=== PATIENT | male | born 1980 | race Caucasian/White ===

== ENCOUNTER 2023-03-15 11:10 | Outpatient (CLI) | payer OTHER, SELFPAY ==
[2023-03-15 18:42] LABS: Basophils Absolute Auto 0.1 K/mm3 (0.0-0.1); Basophils Percent Auto 0.5 % (0.2-1.2); Eosinophils Absolute Auto 0.1 K/mm3 (0-0.3); Eosinophils Percent Auto 0.4 % (0-4.4); Hematocrit 27.1 % (42.0-52.0); Immature Granulocyte Absolute 0.09 K/mm3 (0.00-0.031); Immature Granulocyte Percent A 0.6 % (0-0.5); Lymphocytes Percent Auto 8.1 % (18.3-44.2); Mean Corpuscular HGB Conc 22.1 g/dl (32-36); Mean Corpuscular Hemoglobin 13.9 pg (26-34); Mean Corpuscular Volume 62.9 fl (80-100); Mean Platelet Volume 8.8 fl (7.4-10.4); Monocytes Percent Auto 6.7 % (2.6-8.5); Neutrophils Absolute Auto 12.4 K/mm3 (1.3-6.7); Neutrophils Percent Auto 83.7 % (45.5-73.1); Nucleated Red Blood Cells Perc 0.2 % (0.0-0.2); Platelet Count Result 761 k/mm3 (150-375); Red Blood Count 4.31 M/mm3 (4.6-6.20); Red Cell Distribution Width 22.5 % (11.5-14.5); White Blood Count 14.8 K/mm3 (4.5-10.0)
[2023-03-15 18:43] LABS: Alanine Aminotransferase 20 U/L (6-50); Alkaline Phosphatase 154 U/L (38-126); Anion Gap 9 mmol/L (8-16); Aspartate Amino Transferase 61 U/L (17-59); Bilirubin,Total 0.5 mg/dL (0.2-1.3); Blood Urea Nitrogen 11 mg/dL (9-20); Calcium 9.2 mg/dL (8.4-10.2); Carbon Dioxide 27 mmol/L (22-30); Chloride 103 mmol/L (98-107); Cholesterol 100 mg/dL (0-200); Estimated Glomerular Filt Rate > 60; Glucose 125 mg/dL (65-110); HDL Direct 25 mg/dL; Potassium 3.8 mmol/L (3.4-5.0); Sodium 139 mmol/L (137-145); Triglycerides 111 mg/dL (<150)
[2023-03-15 18:45] LABS: Iron 11 ug/dL (49-181)
[2023-03-15 18:54] LABS: LDL Cholesterol Direct 39 mg/dL
[2023-03-15 18:57] LABS: Percent Iron Saturation 4 % (20-50)
[2023-03-15 19:47] LABS: Anisocytosis 3+ (NORMAL); Hypochromasia 2+ (NORMAL); Platelet Estimate Increased (Adequate)
[2023-03-15 19:48] LABS: Schistocytes None Seen (NORMAL)
== END 2023-03-15 11:11 | disposition home or self-care (01) ==
LOC: ANHGOSHLAB 11:10
PROVIDERS: PCP Family Medicine; Visit Provider Family Medicine
DX: R53.83 Other fatigue (principal); D50.9 Iron deficiency anemia, unspecified; Z13.228 Encounter for screening for other metabolic disorders; Z13.220 Encounter for screening for lipoid disorders
CPT/HCPCS: 36415; 80053; 80061; 82728; 83540; 83550; 85025

== ENCOUNTER 2023-03-16 10:33 | Observation (INO) | payer OTHER, SELFPAY ==
[2023-03-16] VITALS (17 sets, daily range): BP systolic 91–130; BP diastolic 49–89; PULSE 73–145; RESP 12–23; TEMP 36.3–37; O2SAT 98–100; BMI 27.5
--- NOTE | ~2023-03-16 | XR_ITS ---
EXAMINATION: XR chest 2V 03/16/2023 11:58 INDICATION: Shortness of breath and chest pain with exertion PROCEDURE: 2 view chest COMPARISON: 03/16/2016 FINDINGS: The lungs are clear. The cardiomediastinal silhouette is within normal limits. There are no pleural effusions. There is no pneumothorax suspected. IMPRESSION: 1: NO ACUTE CARDIOPULMONARY DISEASE. Reviewed, dictated and finalized at location L.
--- NOTE | ~2023-03-16 | CT_ITS ---
EXAMINATION: CT abdomen pelvis w con DATE: 03/16/2023 13:21 INDICATION: Left lower quadrant abdominal pain. TECHNIQUE: Computed tomography (CT) of the abdomen and pelvis was performed with 100 mL Omnipaque-350 intravenous contrast. Automated exposure control and iterative reconstruction technique were employe d. The dose-length product was 765.85 mGy-cm. COMPARISON: 01/12/2015 FINDINGS: Mild discoid atelectasis at the lingula. Heart size is normal. No pericardial or pleural effusion. Li evan, gallbladder, pancreas and bilateral adrenal glands are normal.. Splenomegaly measuring 15.6 cm i n maximal length. 2.5 cm right renal cyst. A couple additional indeterminate lesions at the left kidn ey measuring 1.2 cm and 1.4 cm with slightly greater than simple fluid attenuation. A few 1 mm stones at the mid left kidney. 2 mm and 3 mm stones at a lower pole calyx of the right kidney. No ureteral stones or hydronephrosis. There are few scattered colonic diverticula without adjacent inflammatory s tranding to suggest diverticular colitis. Small bowel and appendix are normal. Bladder is normal. No free intraperitoneal gas or fluid. No pathologically enlarged abdominal or pelvic lymphadenopathy. Fo grace nodular skin thickening at the bilateral inguinal creases, right greater than left. Moderate thor acolumbar spondylosis. IMPRESSION: 1. Mild scattered sigmoid diverticulosis. No acute intra-abdominal/pelvic process. 2. Bilateral nonobstructing nephrolithiasis. 3. Nonspecific splenomegaly. 4. A couple indeterminate lesions in the left kidney the larger measuring up to 1.4 cm with slightly greater than simple fluid attenuation most likely proteinaceous/hemorrhagic cysts although solid neop lasm cannot be absolutely excluded. Recommend further evaluation with pre and postcontrast MRI or CT. 5. Nonspecific nodular skin thickening along the bilateral inguinal creases. Correlate with clinical history and physical exam. Reviewed, dictated and finalized at location A. IMPRESSION: 1. Mild scattered sigmoid diverticulosis. No acute intra-abdominal/pelvic proce ss. 2. Bilateral nonobstructing nephrolithiasis. 3. Nonspecific splenomegaly. 4. A couple indeterminate lesions in the left kidney the larger measuring up to 1.4 cm with slightly greater than simple fluid attenuation most likely protein aceous/hemorrhagic cysts although solid neoplasm cannot be absolutely excluded. Recommend further evaluation with pre and postcontrast MRI or CT. 5. Nonspecific nodular skin thickening along the bilateral inguinal creases. Co rrelate with clinical history and physical exam.
--- NOTE | ~2023-03-16 | MR_ITS ---
EXAMINATION: MR abdomen wo/w con DATE: 03/17/2023 10:24 INDICATION: Left kidney lesion. Weight loss. TECHNIQUE: Magnetic resonance imaging (MRI) of the abdomen was performed without and with 18 mL Multi fabrizio intravenous contrast. Sequences included coronal T2-weighted SS-FSE, coronal and axial FS 2D-F IESTA, axial STIR FSE, axial T2-weighted SS-FSE, axial T2-weighted FS SS-FSE, axial diffusion-weighte d SE, axial dual-echo T1-weighted FSPGR, and axial and coronal T1-weighted LAVA. Postcontrast axial T 1-weighted LAVA images were obtained in a time course. Postcontrast coronal T1-weighted LAVA images w ere obtained. COMPARISON: CT abdomen pelvis dated 03/26/2023 FINDINGS: Heart size is normal. No pericardial or pleural effusion. Liver, gallbladder, pancreas and bilateral adrenal glands are normal. Nonspecific splenomegaly. There are bilateral T2 hyperintense nonenhancing renal cysts the largest on the right measuring 2.5 cm. These include the 2 lesions of concern noted on the prior CT. No suspicious renal lesions identified. Visualized portions of the bowels are unrema rkable with no obstruction. No pathologically enlarged abdominal lymphadenopathy. There are couple T2 hyperintense fat saturating hemangiomas at T10 and T12. Marrow signal is otherwise unremarkable. IMPRESSION: 1. Multiple bilateral simple appearing renal cysts including the 2 left renal lesions of concern iden tified on prior CT. 2. Nonspecific splenomegaly. Reviewed, dictated and finalized at location A. IMPRESSION: 1. Multiple bilateral simple appearing renal cysts including the 2 left renal l esions of concern identified on prior CT. 2. Nonspecific splenomegaly.
[2023-03-16 11:18] LABS: Basophils Absolute Auto 0.1 K/mm3 (0.0-0.1); Basophils Percent Auto 0.7 % (0.2-1.2); Eosinophils Absolute Auto 0.1 K/mm3 (0-0.3); Eosinophils Percent Auto 0.6 % (0-4.4); Hematocrit 24.9 % (42.0-52.0); Immature Granulocyte Percent A 0.8 % (0-0.5); Lymphocytes Absolute Auto 1.12 K/mm3 (0.9-3.2); Lymphocytes Percent Auto 8.9 % (18.3-44.2); Mean Corpuscular HGB Conc 23.7 g/dl (32-36); Mean Corpuscular Hemoglobin 14.4 pg (26-34); Mean Corpuscular Volume 60.7 fl (80-100); Mean Platelet Volume 8.2 fl (7.4-10.4); Monocytes Absolute Auto 0.9 K/mm3 (0.1-0.6); Monocytes Percent Auto 7.1 % (2.6-8.5); Neutrophils Absolute Auto 10.3 K/mm3 (1.3-6.7); Neutrophils Percent Auto 81.9 % (45.5-73.1); Nucleated Red Blood Cells Perc 0.2 % (0.0-0.2); Platelet Count Result 632 k/mm3 (150-375); Red Cell Distribution Width 22.3 % (11.5-14.5); White Blood Count 12.6 K/mm3 (4.5-10.0)
--- NOTE | 2023-03-16 11:29 | ECG_ITS ---
Measurements Intervals [place] Rate: 97 P: 46 MA: 104 QRS: 33 QRSD: 90 T: 53 QT: 364 QTc: 464 Interpretive Statements SINUS RHYTHM WITH SHORT MA INTERVAL BORDERLINE ECG NO PREVIOUS ECG AVAILABLE FOR COMPARISON Electronically Signed On 03-16-2023 14:12:04 CDT by Samuel Irvin D.O.
[2023-03-16 11:32] LABS: INR 1.2; Prothrombin Time 16.1 Seconds (11.1-14.7)
[2023-03-16 11:33] LABS: Alanine Aminotransferase 17 U/L (6-50); Albumin Level 3.7 g/dL (3.5-5.1); Alkaline Phosphatase 152 U/L (38-126); Anion Gap 10 mmol/L (8-16); Aspartate Amino Transferase 29 U/L (17-59); Bilirubin,Total 0.5 mg/dL (0.2-1.3); Blood Urea Nitrogen 11 mg/dL (9-20); Calcium 8.7 mg/dL (8.4-10.2); Carbon Dioxide 27 mmol/L (22-30); Chloride 102 mmol/L (98-107); Estimated CRCL calculation 98 ml/min; Estimated Glomerular Filt Rate > 60; Glucose 136 mg/dL (65-110); Partial Thromboplastin Time 44.3 SECONDS (22.3-36.8); Potassium 3.6 mmol/L (3.4-5.0); Sodium 139 mmol/L (137-145)
[2023-03-16 11:40] LABS: Hemoglobin 5.9 g/dL (14.0-18.0)
--- NOTE | 2023-03-16 11:41 | ED.RECABL ---
HPI - Recheck/Abnormal Lab/Rx General Chief Complaint: Recheck/Abnormal Lab/Rx <ANDRZEJ Judd Last Filed: 03/16/23 19:20> Stated Complaint: Labs <ANDRZEJ Judd Last Filed: 03/16/23 19:20> Time Seen by Provider: 03/16/23 10:49 <ANDRZEJ Judd Last Filed: 03/16/23 19:20> Source: patient <ANDRZEJ Judd Last Filed: 03/16/23 19:20> Mode of arrival: ambulatory <ANDRZEJ Judd Last Filed: 03/16/23 19:20> Limitations: no limitations <ANDRZEJ Judd Last Filed: 03/16/23 19:20> History of Present Illness HPI narrative: Patient is a 42-year-old male who presents to the ED with report of abnormal labs. Patient reports he has not felt well for the last 1 year or so. He complains of fatigue, loss of energy, dizziness, lightheadedness, shortness of breath with exertion, chest tightness with exertion. He made an appointment with a new primary care doctor yesterday and had outpatient blood work done which showed a hemoglobin of 6.0. Patient was then referred to the ED for further evaluation. Patient states symptoms seem to have been worsening over the last 1 week. He denies passing out or any injuries. He does have a history of hydradenitis suppurativa and notes bleeding associated with some of the lesions, but denies any recent rectal bleeding, melena, abdominal pain, nausea, vomiting, hematemesis, epistaxis, wounds. <ANDRZEJ Judd Last Filed: 03/16/23 19:20> Related Data Allergies/Adverse Reactions: Allergies Allergy/AdvReac Type Severity Reaction Status Date / Time No Known Allergies Allergy Verified 03/16/23 11:12 <ANDRZEJ Judd Last Filed: 03/16/23 19:20> Review of Systems Review of Systems: CONSTITUTIONAL: Denies fever, chills, or sweats. EYES: Denies visual changes. CARDIOVASCULAR: See HPI. RESPIRATORY: See HPI. GASTROINTESTINAL: See HPI. See GENITOURINARY: Denies dysuria or hematuria. SKIN: See HPI. MUSCULOSKELETAL: Denies back pain, joint pain, or myalgia. NEUROLOGIC: See HPI. <Sulma Grewal PA-C - Last Filed: 03/16/23 19:20> All systems reviewed & are unremarkable except as noted in HPI and below <Sulma Grewal PA-C - Last Filed: 03/16/23 19:20> [facility] Past Medical History Medical History: Medical History Asthma COPD (chronic obstructive pulmonary disease) Hidradenitis suppurativa Migraine <Sulma Grewal PA-C - Last Filed: 03/16/23 19:20> Surgical History Surgical History: Surgical History No pertinent past surgical history <Sulma Grewal PA-C - Last Filed: 03/16/23 19:20> Family History Family History: Family History Mother Diabetes mellitus Hypertension Father Family history of chronic obstructive pulmonary disease Family history of congestive heart failure Asthma Alcohol abuse <Sulma Grweal PA-C - Last Filed: 03/16/23 19:20> Social History Social History: Social History Smoking packs per day: 1 Smoking cigarettes per day: 20.0 Years smoked: 20 Smoking pack-years: 20.00 Smoking status: Former smoker Tobacco type: cigarettes Smoking end date: 11/08/13 Alcohol intake: never Substance use: current Substance use type: marijuana Other substance usage details: edibles Lack of Transportation: No Lack of Food: Never True Current Housing: I Have Housing Concerned About Future Housing: No Difficulty Paying Gas/Electric Bills: No Difficulty Paying for Meds: No Currently Unemployed: No Education: High School Diploma/GED Difficulty w/ Childcare or Family Care: No Living arrangements: with family Occupation/E
[2023-03-16] MEDS: PANTOPRAZOLE SODIUM IV 40 MG VIAL IV PUSH (11:48)
[2023-03-16] MEDS: SODIUM CHLORIDE 0.9% IV 1,000 ML 999 ML IV CONT (11:49)
[2023-03-16 11:55] LABS: Lipase 119 U/L (23-300)
[2023-03-16 12:08] LABS: Platelet Estimate Adequate (Adequate); Troponin I < 0.012 ng/mL (0.000-0.034)
[2023-03-16 12:09] LABS: Hypochromasia 2+ (NORMAL); Microcytosis 2+ (NORMAL); Schistocytes None Seen (NORMAL)
[2023-03-16 12:16] LABS: Lactic Acid Reflex 1.4 mmol/L (0.7-2.0)
[2023-03-16 13:00] LABS: Lactate Dehydrogenase 78 U/L (120-246)
[2023-03-16 13:02] LABS: Immature Reticulocyte Fraction 29.2 % (3.0-15.9); Reticulocytes Absolute 0.09 M/mm3 (0.02-0.1)
[2023-03-16 13:09] LABS: Transferrin 166 mg/dL (206-381)
[2023-03-16 13:29] LABS: Iron < 10 ug/dL (49-181)
[2023-03-16 14:07] LABS: Folic Acid 4.5 ng/mL (2.76->20)
[2023-03-16 14:25] LABS: Percent Iron Saturation < 4 % (20-50)
[2023-03-16] MEDS: SODIUM CHLORIDE 0.9% IV 250 ML 30 ML IV CONT (14:30)
[2023-03-16] MEDS: TUBING, BLOOD PLUM PUMP TUBING 1 EACH XX (14:31)
--- NOTE | 2023-03-16 15:37 | PM.IMHP ---
H&P: HPI History of Present Illness Date/Time: 03/16/23 14:45 Chief Complaint: Abnormal labs. Narrative: This is a 42-year-old male with hidradenitis suppurativa who presented to the emergency department via private vehicle from home for evaluation of abnormal labs. The patient provides the following history. He admits that he has not been feeling great for a year or so with worsening symptoms over the past 1 week to include fatigue, loss of energy, lightheadedness, dizziness, dyspnea on exertion, and occasional chest tightness with exertion. He establish care with a new primary care provider yesterday and has some outpatient lab work drawn. He received a call today that his hemoglobin was 6.0 and he was referred to the ED. He has no known history of anemia however with further questioning he tells me that he was going to be started on Humira for his hidradenitis suppurativa however ?my iron was too low.? This was several years ago, around the start of the COVID pandemic, and it seems as though he was lost to follow-up. On occasion he will have mild bleeding associated with his hidradenitis but nothing significant. Rarely he will notice a small amount of bright red blood on the toilet tissue after having a bowel movement. He has lost about 50 lb in the last 6 years, 30 of them in the last 1 year. He has not been trying to lose weight and he admits that his appetite has not been great for the past year. He does not really have any other complaints but does note some discomfort over the lateral left ankle where he has noticed mild swelling and what looks like a bruise though he has not injured himself. He has not noticed any other joint swelling and denies rashes and joint stiffness. He denies epigastric and abdominal pain, bloating, and belching. He denies epistaxis, gingival bleeding, hemoptysis, hematemesis, and melena. No personal or family history of malignancy or blood dyscrasias. In the ED: Vital signs were stable on arrival. Pertinent labs include a WBC count of 12.6, RBC 4.1, hemoglobin 5.9, hematocrit 24.9%, MCV 60.7, platelets 632 PT 16.1, INR 1.2, PTT 44.3, sodium 137, potassium 3.5, BUN 8, creatinine 0.80, glucose 135. Brown stool was noted on rectal exam in the ED and that was Hemoccult negative. CT of the abdomen and pelvis showed no acute intra-abdominal or pelvic process, mild scattered sigmoid diverticulosis, nonspecific splenomegaly, bilateral nonobstructing kidney stones, and a couple of indeterminate lesions in the left kidney. He is being transfused 2 units of packed red blood cells and is being admitted to the floor for closer monitoring and evaluation. Review of Systems Review of Systems: All systems reviewed & are unremarkable except as noted in HPI and below PMFSH Past Medical History Medical History (Updated 03/17/23 @ 14:22 by Kati Bond PA-C) Asthma Hidradenitis suppurativa Migraine Surgical History Surgical History (Updated 03/17/23 @ 14:17 by Kati Bond PA-C) No history of previous surgery No pertinent past surgical history Family History Family History Mother Diabetes mellitus Hypertension Father Family history of chronic obstructive pulmonary disease Family history of congestive heart failure Asthma Alcohol abuse Social History Social History Social History: Surrogate medical decision maker: Anastasiya Conroy, spouse. Code status: Full code. Smoking packs per day: 1 Smoking cigarettes per day: 20.0 Years smoked: 20 Smoking pack-years: 20.00 Smoking status: Former smoker Tobacco type: cigarettes Smoking end date: 11/08/13 Alcohol intake: never Substance use: current Substance use type: marijuana Other substance usage details: edibles Lack of Transportation: No Lack of Food: Never True Current Housing: I Have Housing Concerned About [employer]
--- NOTE | 2023-03-16 17:10 | ADMGEN ---
This patient, Patrick Conroy, was admitted to Medical Room 261-01. Patient/family oriented to hospital policies and general routines including ID bracelet, bed and alarms, visiting hours, pain management, procedures, bathroom and other care routines, personal items, smoking policy, room service/diet, and visiting hours. Information on how to activate the Rapid Response Team has been discussed. Patient/Family are encouraged to report perceived risks to care and to ask questions if they do not understand what they are told or what they should do.
--- NOTE | 2023-03-16 17:49 | WPDGICN ---
Assessment and Plan Assessment and plan (1) Microcytic anemia: Code(s): D50.9 - Iron deficiency anemia, unspecified Status: Acute Assessment and Plan: His hemoglobin was 5.9. MCV is 60 Serum iron is less than 10 with 4% saturation Ferritin is also low. (2) Hidradenitis suppurativa: Code(s): L73.2 - Hidradenitis suppurativa Status: Acute Assessment and Plan: He has had this for about 13 years. (3) Weight loss: Code(s): R63.4 - Abnormal weight loss Status: Acute Assessment and Plan: He has lost 25 lb in the past year. He attributes this mostly to lack of appetite. (4) Anorexia: Code(s): R63.0 - Anorexia Status: Acute Assessment and Plan: He often does not feel like eating. He denies nausea or vomiting. (5) Abnormal CT scan, gastrointestinal tract: Code(s): R93.3 - Abnormal findings on diagnostic imaging of other parts of digestive tract Status: Acute Assessment and Plan: Splenomegaly is noted on CT scan which could explain anemia if hemolytic but his pattern appears to be more consistent with iron deficiency. Plan Will start him on a prep for colonoscopy and also perform EGD. I discussed possible scenarios with him such as celiac disease, AVMs , as well as neoplasm. GI Consult Note Consult date/time: 03/16/23 17:49 HPI: Patrick Conroy is a 42 year old male who presented to the emergency room today with complaint of anemia. He states that he has had progressive fatigue lack of energy and being short of breath with the least of exertion for the past month in even before that. His symptoms began sometime in the past year but has been progressively worsening. His primary care doctor the blood work yesterday and his hemoglobin was found to be 6.0. Repeat here was 5.9. Also he has a very low MCV. He states that he has never been anemic in the past. He denies abdominal pain he has had a poor appetite but has had no vomiting. He denies dysphagia. There has been no change in bowel habits. He denies chronic diarrhea. He has however lost about 25 lb in the past 8-12 months. The only chronic disease he has is hidradenitis suppurative. These lesions are either him his axilla or around the groin. There is no family history of digestive disease or anemia to his knowledge. He does not take NSAIDs. He has no history of liver disease he any seldom drinks. Review of Systems Review of Systems: All systems reviewed & are unremarkable except as noted in HPI and below PMFSH Past Medical History Medical History Asthma COPD (chronic obstructive pulmonary disease) Hidradenitis suppurativa Migraine Surgical History Surgical History No pertinent past surgical history Family History Family History Mother Diabetes mellitus Hypertension Father Family history of chronic obstructive pulmonary disease Family history of congestive heart failure Asthma Alcohol abuse Social History Social History Smoking packs per day: 1 Smoking cigarettes per day: 20.0 Years smoked: 20 Smoking pack-years: 20.00 Smoking status: Former smoker Tobacco type: cigarettes Smoking end date: 11/08/13 Alcohol intake: never Substance use: current Substance use type: marijuana Other substance usage details: edibles Lack of Transportation: No Lack of Food: Never True Current Housing: I Have Housing Concerned About Future Housing: No Difficulty Paying Gas/Electric Bills: No Difficulty Paying for Meds: No Currently Unemployed: No Education: High School Diploma/GED Difficulty w/ Childcare or Family Care: No Living arrangements: with family Occupation/Education: occupation Gender identity (if verbalized b
[2023-03-16 21:40] LABS: Hematocrit 25.6 % (42.0-52.0)
[2023-03-16 21:44] LABS: Hemoglobin 6.6 g/dL (14.0-18.0)
[2023-03-17] VITALS (12 sets, daily range): BP systolic 102–125; BP diastolic 55–72; PULSE 84–98; RESP 16–18; TEMP 36.5–36.8; O2SAT 99–100
[2023-03-17 06:50] LABS: Mean Corpuscular Hemoglobin 16.1 pg (26-34); Mean Corpuscular Volume 64.5 fl (80-100); Mean Platelet Volume 8.4 fl (7.4-10.4); Platelet Count Result 554 k/mm3 (150-375); Red Blood Count 4.03 M/mm3 (4.6-6.20); Red Cell Distribution Width 25.6 % (11.5-14.5); White Blood Count 10.8 K/mm3 (4.5-10.0)
[2023-03-17 06:53] LABS: Anion Gap 7 mmol/L (8-16); Blood Urea Nitrogen 8 mg/dL (9-20); Calcium 7.9 mg/dL (8.4-10.2); Carbon Dioxide 26 mmol/L (22-30); Chloride 104 mmol/L (98-107); Estimated CRCL calculation 109 ml/min; Estimated Glomerular Filt Rate > 60; Glucose 135 mg/dL (65-110); Magnesium 2.1 mg/dL (1.6-2.3); Potassium 3.5 mmol/L (3.4-5.0); Sodium 137 mmol/L (137-145)
[2023-03-17 06:54] LABS: Hemoglobin 6.5 g/dL (14.0-18.0)
--- NOTE | 2023-03-17 08:37 | PM.IMPN ---
Progress Note: A&P Assessment and Plan (1) Microcytic anemia: Code(s): D50.9 - Iron deficiency anemia, unspecified Status: Acute Assessment and Plan: Presented to ED per PCP for low hgb. 5.9 on admission Received 2 units pRBC on admission Hgb today 6.5 Transfuse 1 unit and recheck H&H following Trend H&H q6h Stool occult blood test pending Appreciate GI consult. Planning for EGD and colonoscopy tomorrow Found to be iron deficient. Appreciate hematology consult and recommendations (2) Weight loss: Code(s): R63.4 - Abnormal weight loss Status: Acute Assessment and Plan: Reports 25 pound weight loss in 1 year Attributes to cutting out soda and decreased appetite Await colonoscopy and EGD Plate Corrector evaluation appreciated (3) Splenomegaly: Code(s): R16.1 - Splenomegaly, not elsewhere classified Status: Acute Assessment and Plan: Noted on CT of the abdomen Appreciate hematology recommendations (4) Hidradenitis suppurativa: Code(s): L73.2 - Hidradenitis suppurativa Status: Acute Assessment and Plan: Longstanding issue. CT shows nodular skin thickening in bilateral inguinal creases which is due to hidradenitis Continue topical clindamycin Resume home doxy following EGD/colonoscopy (5) Abnormal CT of the abdomen: Code(s): R93.5 - Abnormal findings on diagnostic imaging of other abdominal regions, including retroperitoneum Status: Acute Assessment and Plan: CT of the abdomen/pelvis showed couple indeterminate lesions in left kidney measuring up to 1.4 cm with findings concerning for proteinaceous/hemorrhagic cysts although solid neoplasm cannot be excluded. Pt denies hematuria will proceed with pre and post contrast MRI of the abdomen for further evaluation to rule out malignancy in light of weight loss and anemia. Subjective Date/time seen: 03/17/23 08:37 Interval history: Date of service: 03/17/2023 Patrick Conroy is a 42-year-old male with a history of hidradenitis suppurativa who is seen in follow-up for anemia. He states that he is starting to feel better after receiving blood. His shortness of breath has improved but he continues to endorse dyspnea on exertion. He denies any episodes of bleeding including hematuria, hematochezia, melena, hemoptysis, epistaxis. He does state that he occasionally has bloody drainage from irritated skin secondary to his hidradenitis but this seems to be minimal amount. He does endorse weight loss, approximately 25 lb over the past 1 year as previously noted periods he does state, however, that he has cut out soda and has tried to make healthier food decisions so this is not completely unintentional. He denies chest pain or palpitations. No abdominal pain. Denies dizziness or lightheadedness today. Continues to endorse fatigue and poor energy. Review of Systems Review of Systems: All systems reviewed & are unremarkable except as noted in HPI and below Exam Narrative: General: well-nourished, well-appearing 42-year-old male, sitting up in bed, comfortable Neuro: awake, alert and oriented x4, speech clear, no focal neuro deficits noted HEENMT: normocephalic, atraumatic, EOMI, sclerae anicteric Respiratory: clear to auscultation bilaterally, nonlabored breathing Cardio: regular rate, regular rhythm with S1-S2 Abdomen: nondistended, normoactive bowel sounds, soft, nontender to palpation Extremities: no edema, erythema, or tenderness to palpation, DP pulses 2+ bilaterally Skin: no rashes or lesions, warm and dry Psych: appropriate mood and affect, judgment and insight intact Objective Data Vital Signs Vital Signs: Vital Signs - 24 hr 03/16/23 10:37 03/16/23 11:08 03/16/23 10:54 Temperature 97.4 F L Pulse Rate 145 H 113 H 125 H Respiratory Rate 16 14 13 Blood Pressure 130/79 124/89 111/78 Pulse Oximetry 100 100 100 Oxygen Delivery Room Air
[2023-03-17] MEDS: CLINDAMYCIN PHOS 1% 30 GM GEL 1 APPLIC TOPICAL ×3 (09:15→16:12)
[2023-03-17 10:58] LABS: Lactate Dehydrogenase 83 U/L (120-246)
[2023-03-17 11:01] LABS: Hemoglobin A1C 5.3 % (<5.7)
[2023-03-17] MEDS: SODIUM CHLORIDE 0.9% IV 250 ML 125 ML (11:37)
[2023-03-17] MEDS: polyethylene glycoL 3350 238 GM BOTTLE PO (13:24)
[2023-03-17] MEDS: BISACODYL 5 MG TABLET EC 10 MG PO ×3 (13:26→20:32)
[2023-03-17 16:26] LABS: Hematocrit 29.6 % (42.0-52.0); Hemoglobin 7.7 g/dL (14.0-18.0)
[2023-03-17 16:42] LABS: Uric Acid 7.4 mg/dL (3.5-8.5)
[2023-03-17 16:51] LABS: CRP 16.4 mg/dL (<1.0)
[2023-03-17 16:54] LABS: Rheumatoid Factor < 12.0 IU/ML (<12)
--- NOTE | 2023-03-17 18:30 | PDONCCN ---
HPI - Date of Consult Date/Time: 03/17/23 18:30 Requesting Physician: Jannette House PA-C Primary Care Provider: Donny Barfield, DO - Consult Narrative Reason for consult: Microcytic anemia Narrative: Patrick Conroy is a 42 year old male with history of hydradenitis suppurative diagnosed long time ago and has gotten worse since the COVID infection. He has seen Dr. Epstein 3 years ago and plan was to start on Humira but did not keep the follow-up appointment. CT scan of abdomen and pelvis showed no acute intra-abdominal or pelvic process. Labs reviewed that showed iron level of less than 10 with iron saturation of less than 4%. Vitamin B12 level and kidney function was normal. Hemoglobin was 5.9 and patient received 3 units of packed red blood cell. His hemoglobin now has improved to 7.7. Patient was complaining of bleeding from the skin lesions. He denies any melena hematochezia. He never had colonoscopy in the past. He denies being a vegetarian. He denies having any previous stomach surgery. Review of Systems - Review of Systems All systems reviewed & are unremarkable except as noted in HPI and [facility] Medical History: Medical History (Last Updated 03/17/23 @ 14:17 by Kati Bond PA-C) Asthma Hidradenitis suppurativa Migraine Surgical History: Surgical History (Last Updated 03/17/23 @ 14:17 by Kati Bond PA-C) No history of previous surgery No pertinent past surgical history Family History: Family History (Last Reviewed 03/17/23 @ 14:18 by Kati Bond PA-C) Mother Diabetes mellitus Hypertension Father Family history of chronic obstructive pulmonary disease Family history of congestive heart failure Asthma Alcohol abuse - Social History Social History: Social History (Last Reviewed 03/17/23 @ 14:18 by Kati Bond PA-C) Alcohol Use: Alcohol intake: never Substance Use: Substance use: current Substance use type: marijuana Other substance usage details: edibles Others: Spiritual care concerns: No Agree to blood products: Yes Living Arrangements: Living arrangements: with family Oppucation/Education: Occupation/Education: occupation Smoking Status: Smoking status: Former smoker Tobacco type: cigarettes Smoking end date: 11/08/13 Smoking Pack-years: Smoking packs per day: 1 Smoking cigarettes per day: 20.0 Years smoked: 20 Smoking pack-years: 20.00 Social Determinants of Health: Has the Lack of Transportation Kept You From Medical Appointments or From Getting Medications?: No Within the Past 12 Months, Were You Worried Whether Your Food Would Run Out Before You Got Money to Buy More?: Never True What is Your Housing Situation Today?: I Have Housing Are You Worried That in the Next 2 Months, You May Not Have Your Own Housing to Live In?: No Do You Have Trouble Paying Your Heating Or Electricity Bill?: No Do You Have Trouble Paying For Medicines?: No Are You Currently Unemployed and Looking for Work?: No Highest Level of Education Completed: High School Diploma/GED Do You Have Trouble With Childcare or the Care of a Family Member?: No Exam - Vital Signs Vital Signs - 24 hr 03/16/23 18:32 03/16/23 19:33 03/16/23 20:00 Temperature 36.8 C 36.9 C Pulse Rate 73 98 96 Respiratory Rate 14 20 Blood Pressure 106/65 103/63 Pulse Oximetry 100 100 Oxygen Delivery 03/16/23 20:00 03/17/23 00:00 03/17/23 04:00 Temperature Pulse Rate 98 84 84 Respiratory Rate 20 Blood Pressure Pulse Oximetry 100 Oxygen Delivery Room Air 03/17/23 11:15 03/17/23 11:30 03/17/23 12:30 Temperature 36.7 C 36.8 C 36.8 C Pulse Rate 95 98 94 Respiratory Rate 16 16 16 Blood Pressure 102/60 115/55 L 120/65 Pulse Oximetry 100 100 100 Oxygen Delivery 03/17/23 08:00 03/17/23 13:30 03/17/23 14:00 Temperature 36.8 C 36.8 C
[2023-03-17 22:51] LABS: Hematocrit 28.6 % (42.0-52.0); Hemoglobin 7.4 g/dL (14.0-18.0)
[2023-03-18] VITALS (8 sets, daily range): BP systolic 96–164; BP diastolic 59–98; PULSE 80–95; RESP 16–20; TEMP 36.4–36.8; O2SAT 94–100
[2023-03-18 06:02] LABS: Hematocrit 28.7 % (42.0-52.0); Hemoglobin 7.3 g/dL (14.0-18.0); Mean Corpuscular HGB Conc 25.4 g/dl (32-36); Mean Corpuscular Volume 66.9 fl (80-100); Mean Platelet Volume 8.3 fl (7.4-10.4); Platelet Count Result 510 k/mm3 (150-375); Red Blood Count 4.29 M/mm3 (4.6-6.20); White Blood Count 11.4 K/mm3 (4.5-10.0)
[2023-03-18 06:14] LABS: Anion Gap 9 mmol/L (8-16); Blood Urea Nitrogen 5 mg/dL (9-20); Calcium 7.8 mg/dL (8.4-10.2); Carbon Dioxide 23 mmol/L (22-30); Chloride 107 mmol/L (98-107); Estimated CRCL calculation 109 ml/min; Estimated Glomerular Filt Rate > 60; Glucose 107 mg/dL (65-110); Potassium 3.3 mmol/L (3.4-5.0); Sodium 139 mmol/L (137-145)
[2023-03-18] MEDS: CLINDAMYCIN PHOS 1% 30 GM GEL 1 APPLIC TOPICAL ×2 (08:23→16:35)
[2023-03-18] MEDS: IRON SUCROSE COMPLEX 500 MG in SODIUM CHLORIDE 0.9% IV 250 ML 78.57 MG IVPB (08:23)
[2023-03-18 12:44] LABS: Appearance Urine Cloudy (Clear); Bacteria Urine Rare /hpf; Bilirubin Urine Negative (Negative); Color Urine Yellow (Yellow); Glucose Urine UA Negative (Negative); Ketones Urine Negative (Negative); Leukocyte Esterase Ur 2+ LEU/UL (Negative); Nitrate Urine Negative (Negative); Non Pathogenic Casts 0-2; Protein Urine Trace mg/dL (Negative); Specific Grav Ur 1.013 (1.001-1.035); Squamous Epithelial Cell Urine Few /hpf (Few); WBC Urine 21-50 /hpf; pH Urine 6.5 (5.0-9.0)
[2023-03-18] MEDS: LACTATED RINGERS 1,000 ML 150 ML IV CONT (13:22)
[2023-03-18 13:32] LABS: Add Urine Microscopic? YES
--- NOTE | 2023-03-18 14:44 | SUR.OPER ---
EGD START: 1423; END: 1428. COLONOSCOPY START: 1435; END: 1444.
[2023-03-18 16:29] LABS: Hematocrit 32.3 % (42.0-52.0); Hemoglobin 8.4 g/dL (14.0-18.0)
--- NOTE | 2023-03-18 16:38 | PM.DS ---
DS: Admitting Diagnosis Discharge Date 03/18/2023 Admitting Diagnosis Anemia DS: Discharge Diagnosis Discharge Diagnosis (1) Symptomatic anemia: Code(s): D64.9 - Anemia, unspecified Status: Acute Assessment and Plan: Presented to ED per PCP for low hgb. 5.9 on admission. Patient received a total of 3 units packed RBCs. H&H stabilized following this. Evaluated by Gastroenterology. Underwent EGD and colonoscopy. EGD showed reflux esophagitis the patient was started on pantoprazole, anti-reflux measures initiated. Colonoscopy showed single rectal polyp which was excised. He will follow-up with GI for pathology results. He was also evaluated by Hematology who recommended initiation of iron infusions. Received 1 IV iron infusion during admission. Will continue p.o. iron supplementation 325 mg b.i.d. with daily vitamin-C. Will follow up with Hematology as an outpatient for continued monitoring and iron infusions as needed. Patient will have repeat H&H on 03/22/2023 with a chills to Hematology and PCP (2) Weight loss: Code(s): R63.4 - Abnormal weight loss Status: Acute Assessment and Plan: Reports 25 pound weight loss in 1 year. Senses so this was not quite unintentional. Patient states he has been cutting out soda, trying to make healthier life choices. Also endorsed decreased appetite overall. No concerns for malignancy on EGD or colonoscopy. Evaluated by dietitian during admission (3) Splenomegaly: Code(s): R16.1 - Splenomegaly, not elsewhere classified Status: Acute Assessment and Plan: Noted on CT of the abdomen. Seen in consultation by Hematology. Nonspecific finding. Continue with outpatient follow-up (4) Abnormal CT of the abdomen: Code(s): R93.5 - Abnormal findings on diagnostic imaging of other abdominal regions, including retroperitoneum Status: Acute Assessment and Plan: CT of the abdomen/pelvis showed couple indeterminate lesions in left kidney measuring up to 1.4 cm with findings concerning for proteinaceous/hemorrhagic cysts although solid neoplasm cannot be excluded. Pt denied hematuria and UA without blood. Pre and post-contrast MRI of the abdomen completed which showed multiple bilateral simple appearing renal cyst including the to live renal lesions of concern. No evidence of malignancy. (5) Hidradenitis suppurativa: Code(s): L73.2 - Hidradenitis suppurativa Status: Chronic Assessment and Plan: Longstanding issue. CT shows nodular skin thickening in bilateral inguinal creases which is due to hidradenitis. Recently established care with PCP and was started on topical clindamycin and p.o. doxycycline. Outpatient Dermatology follow-up has been arranged DS: Summary Hospital Course Hospital Course: Date of admission: 03/16/2023 Date of discharge: 03/18/2023 Patrick Conroy is a 42-year-old male with a history of hidradenitis suppurativa who presented to the emergency department on 03/16/2023 with complaints of shortness of breath, decreased energy, dizziness, lightheadedness. Reports he was directed to the ED by his PCP after outpatient labs showed hemoglobin of 6.0. On presentation to the ED, he was tachycardic, additional vital signs are stable, WBC 12.6, hemoglobin 5.9, hematocrit 24.9, iron <10. % sat <[address] of the abdomen/pelvis showed nonspecific splenomegaly, indeterminate kidney lesions, mild diverticulosis with no acute intra-abdominal/pelvic process. He was admitted to the hospitalist service for further evaluation and management was seen in consultation by GI and Hematology. Please see above for further details. Hemoglobin stabilized following transfusion patient had symptomatic improvement. Underwent EGD and colonoscopy as described above. Will continue with outpatient GI and hematology follow-up. Started on oral iron supplementation. Patient overall feeling much improved and fe
[2023-03-20 19:58] LABS: Haptoglobin 407 mg/dL (43-212)
[2023-03-22 15:43] LABS: Haptoglobin 403 mg/dL (43-212)
== END 2023-03-18 17:18 | disposition home or self-care (01) ==
LOC: ANHED 14:45 → ANH2MED 03-17 06:50
PROVIDERS: Internal Medicine Gastroenterology; Physician Assistant; Admitting Provider Chiropractor; Emergency Provider Physician Assistant; PCP Family Medicine; Visit Provider Physician Assistant
PROC: 0DJ08ZZ Inspection of Upper Intestinal Tract, Via Natural or Artificial Opening Endoscopic (ICD-10-PCS; CPT 43235; principal; 2023-03-18 14:45)
DX: K21.00 Gastro-esophageal reflux disease with esophagitis, without bleeding (principal); D50.9 Iron deficiency anemia, unspecified; D12.8 Benign neoplasm of rectum; R63.4 Abnormal weight loss; R16.1 Splenomegaly, not elsewhere classified; R93.5 Abnormal findings on diagnostic imaging of other abdominal regions, including retroperitoneum; L73.2 Hidradenitis suppurativa; K57.30 Diverticulosis of large intestine without perforation or abscess without bleeding; N20.0 Calculus of kidney; N28.9 Disorder of kidney and ureter, unspecified; R63.0 Anorexia; Z68.26 Body mass index [BMI] 26.0-26.9, adult; R79.89 Other specified abnormal findings of blood chemistry; R93.3 Abnormal findings on diagnostic imaging of other parts of digestive tract; I44.0 Atrioventricular block, first degree; N28.1 Cyst of kidney, acquired; R53.83 Other fatigue; R42 Dizziness and giddiness; R06.09 Other forms of dyspnea; R07.89 Other chest pain; J45.909 Unspecified asthma, uncomplicated; J44.9 Chronic obstructive pulmonary disease, unspecified; G43.909 Migraine, unspecified, not intractable, without status migrainosus; F12.90 Cannabis use, unspecified, uncomplicated; D72.829 Elevated white blood cell count, unspecified; R74.8 Abnormal levels of other serum enzymes; Z86.16 Personal history of COVID-19; Z87.891 Personal history of nicotine dependence; Z79.899 Other long term (current) drug therapy
CPT/HCPCS: 43239; 45380; 36415; 36430; 71046; 74177; 74183; 80048; 80053; 81001; 82607; 82728; 82746; 83010; 83036; 83540; 83550; 83605; 83615; 83690; 83735; 84443; 84466; 84484; 84550; 85014; 85018; 85025; 85027; 85046; 85610; 85730; 86038; 86140; 86430; 86850; 86900; 86901; 86923; 87077; 87086; 87088; 88305; 93005; 96361; 96374; 99285; A9270; A9577; C9113; G0378; J1756; J2704; J7030; J7050; J7120; P9016; Q9967

== ENCOUNTER 2023-03-22 09:49 | Outpatient (CLI) | payer OTHER, SELFPAY ==
[2023-03-22 19:53] LABS: Hematocrit 34.9 % (42.0-52.0); Hemoglobin 8.6 g/dL (14.0-18.0)
== END 2023-03-22 09:50 | disposition home or self-care (01) ==
LOC: ANHGOSHLAB 09:49
PROVIDERS: PCP Family Medicine; Visit Provider Physician Assistant
DX: D64.9 Anemia, unspecified (principal)
CPT/HCPCS: 36415; 85014; 85018

== ENCOUNTER 2024-04-27 08:34 | Outpatient (CLI) | payer OTHER, SELFPAY ==
--- NOTE | ~2024-04-27 | XR_ITS ---
XR chest 2V 04/27/2024 08:40 Indication: Wheezing Procedure: 2 view chest Comparison: 03/16/2023 Findings: There is a new thin-walled cavitary lesion of the right upper lobe anteriorly. No focal air space disease. No pleural effusion. No pneumothorax. No acute osseous abnormality. Impression: 1: New thin-walled cavitary lesion right upper lobe anteriorly. Consider correlation with CT chest wi th contrast. Reviewed, dictated and finalized at location B. Impression: 1: New thin-walled cavitary lesion right upper lobe anteriorly. Consider correl ation with CT chest with contrast.
== END 2024-04-27 08:35 ==
LOC: GOSHIMG 08:35
PROVIDERS: PCP Family Medicine; Visit Provider Family Medicine
DX: R06.2 Wheezing (principal)
CPT/HCPCS: 71046

== ENCOUNTER 2024-04-27 08:51 | Outpatient (CLI) | payer OTHER, SELFPAY ==
[2024-04-27 14:52] LABS: Basophils Absolute Auto 0.1 K/mm3 (0.0-0.1); Basophils Percent Auto 0.5 % (0.2-1.2); Eosinophils Absolute Auto 0.1 K/mm3 (0-0.3); Eosinophils Percent Auto 0.8 % (0-4.4); Hematocrit 45.1 % (42.0-52.0); Hemoglobin 13.1 g/dL (14.0-18.0); Immature Granulocyte Absolute 0.18 K/mm3 (0.00-0.031); Immature Granulocyte Percent A 1.5 % (0-0.5); Lymphocytes Percent Auto 14.5 % (18.3-44.2); Mean Corpuscular Hemoglobin 22.7 pg (26-34); Mean Platelet Volume 8.9 fl (7.4-10.4); Monocytes Absolute Auto 1.4 K/mm3 (0.1-0.6); Monocytes Percent Auto 11.7 % (2.6-8.5); Neutrophils Absolute Auto 8.3 K/mm3 (1.3-6.7); Platelet Count Result 370 k/mm3 (150-375); Red Blood Count 5.78 M/mm3 (4.6-6.20); Red Cell Distribution Width 21.8 % (11.5-14.5); White Blood Count 11.7 K/mm3 (4.5-10.0)
[2024-04-27 15:11] LABS: Alanine Aminotransferase 19 U/L (6-50); Albumin Level 3.9 g/dL (3.5-5.1); Alkaline Phosphatase 100 U/L (38-126); Anion Gap 4 mmol/L (4-12); Aspartate Amino Transferase 29 U/L (17-59); Bilirubin,Total 0.5 mg/dL (0.2-1.3); Blood Urea Nitrogen 14 mg/dL (9-20); Calcium 9.4 mg/dL (8.4-10.2); Carbon Dioxide 31 mmol/L (22-30); Chloride 104 mmol/L (98-107); Cholesterol 153 mg/dL (0-200); Estimated Glomerular Filt Rate > 60; Glucose 124 mg/dL (65-110); HDL Direct 44 mg/dL; Potassium 4.2 mmol/L (3.4-5.0); Sodium 139 mmol/L (137-145); Triglycerides 151 mg/dL (<150)
[2024-04-27 15:26] LABS: LDL Cholesterol Direct 86 mg/dL
[2024-04-27 15:40] LABS: Iron 62 ug/dL (49-181)
[2024-04-27 16:02] LABS: Percent Iron Saturation 19 % (20-50)
[2024-04-27 16:27] LABS: Hemoglobin A1C 6.7 % (<5.7)
[2024-04-27 17:20] LABS: Hypochromasia 1+; Ovalocytes 1+; Platelet Estimate Adequate (Adequate); Schistocytes None Seen
== END 2024-04-27 08:52 | disposition home or self-care (01) ==
LOC: ANHGOSHLAB 08:52
PROVIDERS: PCP Family Medicine; Visit Provider Family Medicine
DX: R73.9 Hyperglycemia, unspecified (principal); Z13.220 Encounter for screening for lipoid disorders; Z13.228 Encounter for screening for other metabolic disorders; R53.83 Other fatigue; D50.9 Iron deficiency anemia, unspecified
CPT/HCPCS: 36415; 80053; 80061; 82728; 83036; 83540; 83550; 85025

== ENCOUNTER 2025-08-23 11:18 | Inpatient (IN) | payer OTHER, SELFPAY ==
--- OUTSIDE RECORDS SUMMARY | 2013-11-17 02:30 | XMS_ITS | Continuity of Care Document ---
Author Organization [facility] Address [address] [place] [address] [address] [place] [address] Phone Care Team Providers Care Human Resources Leader Name Role Phone Marjorie VALADEZ, Syed Unavailable Unavaila ble Allergies, Adverse Reactions, Alerts Substance Reaction Status Criticality No Known allergies Procedures Procedure Date OFFICE/OUTPATIENT VISIT, [facility] CORNEAL TOPOGRAPHY Advance Directives Directive Yes / No Effective Date File Name No Information Encounters Encounter Description Practice Location Reason(s) For Visit Diagnoses Date Provider Providers Copied on Encounter OFFICE/OUTPA TIENT VISIT, [facility], [address], [place], [place], [address], tel:[phone] Oph Consult [facility] Office Central opacity of corneaEndothel ial corneal dystrophyRegul ar astigmatismMyo samir 4 Marjorie Lynch. [address] [facility], [address], [place], [place], [address], [place]. tel:[phone] Referring Provider: Syed zuleta, [address] [facility] [address], [place], [address] . tel:[phone] Family History Family Member Type Diagnosis Age At Onset No Information Payers Payer name Insurance type Covered constitution party ID Authoriza tion(s) No Information Social History [...]
[2025-08-23] VITALS (17 sets, daily range): BP systolic 126–147; BP diastolic 66–100; PULSE 113–135; RESP 18–22; TEMP 36.8; O2SAT 95–99; BMI 32.3
--- NOTE | ~2025-08-23 | US_ITS ---
EXAMINATION: US renal BI DATE: 08/24/2025 08:05 INDICATION: Kidney cyst. TECHNIQUE: Multiple ultrasound grayscale images of the kidneys were obtained. COMPARISON: CT 08/23/2025, MRI 03/17/2023 FINDINGS: The right kidney measures 14.6 x 5.8 x 7.0 cm. The left kidney measures 13.6 x 6.3 x 6.1 cm. The kidneys demonstrate normal parenchymal echogenicity. There is a 3.3 cm cyst in right kidney. There is no hydronephrosis. The bladder is normal. IMPRESSION: 1. Benign cyst in right kidney. Reviewed, dictated and finalized at location E.
--- NOTE | ~2025-08-23 | CT_ITS ---
EXAMINATION: CT chest abdomen pelvis w con, 08/23/2025 16:40 CDT HISTORY: Hydradenitis groin/arms eval for deep infxn COMPARISON: No comparisons available. TECHNIQUE: CT scan of the chest, abdomen and pelvis was performed with contrast Isovue 300, 92cc injected IV. One or more of the following dose reduction techniques were used: automated exposure control, adjustment of the mA and/or kV according to patient size, use of iterative reconstruction technique. Unless otherwise stated, incidental findings do not require dedicated follow up imaging FINDINGS: CT chest: No significant coronary calcification is present ([id number]) LUNGS: No tracheomalacia. No bronchiectasis. Minimal emphysematous changes. No pulmonary fibrotic changes. No significant honeycombing. HEART AND PERICARDIUM: Within normal limits. AORTA: Normal caliber aorta. MEDIASTINUM: Unremarkable. THYROID: The thyroid is unremarkable. CT abdomen: LIVER: Severe hepatic steatosis. The liver appears enlarged. Portal vein patent. No intrahepatic biliary duct dilatation. SPLEEN: Unremarkable, no splenomegaly. KIDNEYS: Right Kidney: Right kidney simple appearing renal cysts the largest mid pole 3 x 3.4 cm with multiple renal calculi the largest mid pole 4 mm, no hydronephrosis or hydroureter. Left Kidney: Left kidney multiple simple appearing renal cysts the largest mid pole 1 x 1 cm. ADRENAL GLANDS: Unremarkable. PANCREAS: GALLBLADDER/BILIARY: Gallbladder is contracted. STOMACH AND ESOPHAGUS: Visualized stomach and esophagus within normal limits. BOWEL/MESENTERY: No colitis or diverticulitis. Appendix normal. Mesentery normal. No thickening or dilated loops of small bowel. RETROPERITONEUM: Unremarkable AORTA/VASCULATURE: Normal caliber aorta. FREE FLUID OR FREE AIR: No free fluid.. CT pelvis: SOLID ORGANS/REPRODUCTIVE: Unremarkable. BLADDER: The bladder appears distended. LYMPHADENOPATHY: No lymphadenopathy. OSSEOUS STRUCTURES: No sclerotic or lytic lesions. Scattered punctate probable bone islands. OVERLYING SOFT TISSUES: There are postsurgical changes noted in the right axilla and soft tissues. There is thickening noted of the skin overlying the right chest with subcutaneous air and apical defect, clinical correlation is required. Small bilateral fat-containing inguinal hernia. Stranding noted within the soft tissues in the perianal region and perineum consistent with the history of hidradenitis. IMPRESSION: 1. No acute process in the chest, abdomen or pelvis. 2. Postsurgical changes detailed above, there is no rim-enhancing abscesses identified. 3. Incidental findings above Reviewed, dictated and finalized at location P. IMPRESSION: 1. No acute process in the chest, abdomen or pelvis. 2. Postsurgical changes detailed above, there is no rim-enhancing abscesses [place] ntified. 3. Incidental findings above
--- NOTE | 2025-08-23 11:46 | ECG_ITS ---
Test Date: 2025-08-23 11:50:43 Measurements Intervals Model Rate: 131 P: 40 FL: 118 QRS: -7 QRSD: 85 T: 67 QT: 373 QTc: 552 Interpretive Statements SINUS TACHYCARDIA NONSPECIFIC T-WAVE ABNORMALITY- HIGH LATERAL LEADS ABNORMAL ECG No previous ECG available for comparison Electronically Signed On 08-23-2025 12:13:16 CDT by Samuel Irvin D.O.
--- NOTE | 2025-08-23 12:29 | ED_ITS ---
HPI - Recheck/Abnormal Lab/Rx General Chief Complaint: Recheck/Abnormal Lab/Rx <Kizzy Jiménez PA-C - Last Filed: 08/23/25 19:25> Stated Complaint: ELEVATED BLOOD SUGAR ABNORMAL LABS. NO DM HX <Kizzy Jiménez PA-C - Last Filed: 08/23/25 19:25> Time Seen by Provider: 08/23/25 12:29 <Kizzy Jiménze PA-C - Last Filed: 08/23/25 19:25> Focused HPI: This is a 44 year old male that presents to the ER for new diagnosis of DM. Reports his blood sugar was 500 at his doctor office. Reports he hasn't been feeling well over the last couple of weeks. Reports tired, dizziness, thirsty, increased urination. Reports some vomiting, diarrhea. Denies dysuria. GENERAL: Well-appearing, well-nourished, and in no acute distress. HEAD: Normocephalic, atraumatic. CHEST: Clear to auscultation. ?No respiratory distress. HEART: Regular rate and rhythm.? NEURO: ?Alert and oriented x3. Patient screened in triage and initial orders placed.? ?Additional care and disposition to be based upon?diagnostic testing and treatment. <Kizzy Jiménez PA-C - Last Filed: 08/23/25 19:25> History of Present Illness HPI narrative: I agree with the HPI as documented in the medical screening exam. The patient states he is currently managed with Cosentyx for his hidradenitis suppurativa and has been under good control. He denies fevers or bleeding/purulent drainage from the wounds. He states his last dose of Cosentyx was 3 weeks ago and is due for a repeat injection next Wednesday. <Moncho Tillman MD - Last Filed: 08/23/25 19:21> Related Data Home Medications: Home Medications ?Medication ?Instructions ?Recorded ?Confirmed ?Last Taken ?Type secukinumab [Cosentyx (2 Syringes)] subcut 04/27/24 Unknown History <Kizzy Jiménez PA-C - Last Filed: 08/23/25 19:25> Allergies/Adverse Reactions: Allergies Allergy/AdvReac Type Severity Reaction Status Date / Time No Known Allergies Allergy Verified 08/23/25 14:52 <Kizzy Jiménez PA-C - Last Filed: 08/23/25 19:25> Review of Systems 2 Review of Systems: All systems reviewed & are unremarkable except as noted in HPI and below <Moncho Tillman MD - Last Filed: 08/23/25 19:21> PMFSH Past Medical History Medical History: Medical History Hidradenitis suppurativa Migraine Asthma <Kizzy Jiménez PA-C - Last Filed: 08/23/25 19:25> Surgical History Surgical History: Surgical History No history of previous surgery No pertinent past surgical history <Kizzy Jiménez PA-C - Last Filed: 08/23/25 19:25> Family History Family History: Family History Mother Diabetes mellitus Hypertension Father Family history of chronic obstructive pulmonary disease Family history of congestive heart failure Asthma Alcohol abuse <Kizzy Jiménez PA-C - Last Filed: 08/23/25 19:25> Social History Social History: Social History Social History: Caffeine- 1 soda's daily Surrogate medical decision maker: Anastasiya Conroy, spouse. Code status: Full code. Smoking packs per day: 0.5 Smoking cigarettes per day: 10.0 Years smoked: 20 Smoking pack-years: 10.00 Smoking status: Current every day smoker Tobacco type: cigarettes Alcohol intake: never Substance use: current Substance use type: marijuana Other substance usage details: edibles Last use: daily Lack of Transportation: No Lack of Food: Never True Current Housing: I Have Housing Concerned About Future Housing: No Difficulty Paying Gas/Electric Bills: No Difficulty Paying for Meds: No Currently Unemployed: No Education: High School Diploma/GED Difficulty w/ Childcare or Family Care: No Living arrangements: with family Occupation/Education: occupation Spiritual care concerns: No Agree to blood products: Yes <Kizzy Jiménez PA-C - Last Filed: 08/23/25 19:25> Exam 2 Narrative: GENERAL: Well-developed, well-nourished, and in no acute distress. HEAD: Normocephalic, atraumatic. EYES: PERRLA and EOMI. ENT: Nares clear, no rhinorrhea or epistaxis. Mucous membranes dry. Oropharynx without tonsillar hypertrophy exudate or other lesions. CHEST: Clear to auscultation. No respiratory distress. No wheezes rales or rhonchi HEART: Regular rate and rhythm. No murmur heard. Normal peripheral pulses. ABDOMEN: Soft, nontender, nondistended, normal active bowel sounds. EXTREMITIES: Normal range of motion. No edema. SKIN: There are changes in the bilateral axilla and the groin consistent with hidradenitis suppurativa. There is a small amount of erythema noted at the left groin without underlying changes consistent with hidradenitis. There is no noted purulent drainage or active bleeding at any site. Skin otherwise Warm, dry, no rash. NEURO: Alert and oriented x3. No focal deficit. Moving all 4 limbs spontaneously PSYCH: Normal mood and affect. <Moncho Tillman MD - Last Filed: 08/23/25 19:21> Course Course Emergency Course: 19:17 - Fingerstick glucose greater than 500. CBC demonstrates mild anemia with hemoglobin of 12.6 but is otherwise unremarkable. Chemistries demonstrate elevated glucose of 551 with sodium of 129 and bicarb of 16. Anion gap 21. Creatinine 0.85. Venous blood gas demonstrates pH of 7.385 with bicarb of 16. CT chest abdomen pelvis is not concerning for superimposed infection of the patient's hidradenitis. He was started on insulin drip. I discussed the patient with hospitalist ARJUN Miller and ICU physician, Dr. Solis who accepts admission to ICU. <Moncho Tillman MD - Last Filed: 08/23/25 19:21> Vital Signs Vital signs: Vital Signs Temperature 98.3 F 08/23/25 11:41 Pulse Rate 125 H 08/23/25 11:41 Respiratory Rate 18 08/23/25 11:41 Blood Pressure 126/85 08/23/25 11:41 Pulse Oximetry 97 08/23/25 11:41 Oxygen Delivery Room Air 08/23/25 11:41 Temperature 98.3 F 08/23/25 11:41 Pulse Rate 135 H 08/23/25 14:40 Respiratory Rate 20 08/23/25 14:40 Blood Pressure 131/100 H 08/23/25 14:40 Pulse Oximetry 96 08/23/25 14:40 Oxygen Delivery Room Air 08/23/25 14:40 <Kizzy Jiménez PA-C - Last Filed: 08/23/25 19:25> Vital Signs Temperature 98.3 F 08/23/25 11:41 Pulse Rate 125 H 08/23/25 11:41 Respiratory Rate 18 08/23/25 11:41 Blood Pressure 126/85 08/23/25 11:41 Pulse Oximetry 97 08/23/25 11:41 Oxygen Delivery Room Air 08/23/25 11:41 Temperature 98.3 F 08/23/25 11:41 Pulse Rate 135 H 08/23/25 14:40 Respiratory Rate 20 08/23/25 14:40 Blood Pressure 131/100 H 08/23/25 14:40 Pulse Oximetry 96 08/23/25 14:40 Oxygen Delivery Room Air 08/23/25 14:40 <Moncho Tillman MD - Last Filed: 08/23/25 19:21> MDM - Recheck/Abnormal Lab/Rx MDM Narrative Medical decision making narrative: Plan: IV fluids, labs, insulin, imaging, antibiotics is indicated, reassess <Moncho Tillman MD - Last Filed: 08/23/25 19:21> Differential Diagnosis Differential diagnosis: Likely other (DKA, hidradenitis suppurativa, superimposed infection, metabolic abnormality, dehydration, other) <Moncho Tillman MD - Last Filed: 08/23/25 19:21> Lab Data Result diagrams: 08/23/25 16:00 08/23/25 16:01 <Kizzy Jiménez PA-C - Last Filed: 08/23/25 19:25> Labs: Lab Results 08/23/25 08/23/25 08/23/25 Range/Units 11:44 16:00 16:01 WBC 9.9 (4.5-10.0) K/mm3 RBC 5.38 (4.6-6.20) M/mm3 Hgb 12.6 L (14.0-18.0) g/dL Hct 42.7 (42.0-52.0) % MCV 79.4 L (80-100) fl MCH 23.4 L (26-34) pg MCHC 29.5 L (32-36) g/dl RDW 18.1 H (11.5-14.5) % Plt Count 363 (150-375) k/mm3 MPV 9.2 (7.4-10.4) fl Immature Gran % (Auto) 0.5 (0-0.5) % Neut % (Auto) 72.3 (45.5-73.1) % Lymph % (Auto) 11.0 L (18.3-44.2) % Johnson % (Auto) 14.3 H (2.6-8.5) % Eos % (Auto) 1.3 (0-4.4) % Baso % (Auto) 0.6 (0.2-1.2) % Lymph # (Auto) 1.09 (0.9-3.2) K/mm3 Johnson # (Auto) 1.4 H (0.1-0.6) K/mm3 Eos # (Auto) 0.1 (0-0.3) K/mm3 Baso # (Auto) 0.1 (0.0-0.1) K/mm3 Abs Immat Gran (auto) 0.05 H (0.00-0.031) K/mm3 Absolute Neuts (auto) 7.2 H (1.3-6.7) K/mm3 Absolute Nucleated RBC 0.000 (0.0-0.012) K/mm3 Band Neutrophils % Not Reportable Nucleated RBC % 0.0 (0.0-0.2) % Platelet Estimate Adequate (Adequate) Hypochromasia Occasional Ovalocytes Occasional Schistocytes None seen Sodium 129 L (137-145) mmol/L Potassium 4.1 (3.4-5.0) mmol/L Chloride 92 L (98-107) mmol/L Carbon Dioxide 16 L (22-30) mmol/L Anion Gap 21 H (4-12) mmol/L BUN 24 H D (9-20) mg/dL Creatinine 0.85 (0.7-1.3) mg/dL Estim Creat Clear Calc 120 ml/min Estimated GFR > 60 (59 - ) Glucose 551 H* (65-110) mg/dL POC Capillary Glucose > 500 H* (65-105) mg/dl Hemoglobin A1c Pending Calcium 8.7 (8.4-10.2) mg/dL Phosphorus 3.8 (2.5-4.5) mg/dL Magnesium 1.9 (1.6-2.3) mg/dL Total Bilirubin 0.9 (0.2-1.3) mg/dL AST 28 (17-59) U/L ALT 42 (6-50) U/L Alkaline Phosphatase 172 H (38-126) U/L Total Protein 7.4 (6.3-8.2) g/dL Albumin 3.6 (3.5-5.1) g/dL Urine Color Urine Appearance Urine pH Ur Specific [place] Urine Protein Urine Glucose (UA) Urine Ketones Ur Blood (Man) Urine Nitrate Urine Bilirubin Urine Urobilinogen Leukocyte Esterase Rfl 08/23/25 08/23/25 Range/Units 18:56 19:06 WBC (4.5-10.0) K/mm3 RBC (4.6-6.20) M/mm3 Hgb (14.0-18.0) g/dL Hct (42.0-52.0) % MCV (80-100) fl MCH (26-34) pg MCHC (32-36) g/dl RDW (11.5-14.5) % Plt Count (150-375) k/mm3 MPV (7.4-10.4) fl Immature Gran % (Auto) (0-0.5) % Neut % (Auto) (45.5-73.1) % Lymph % (Auto) (18.3-44.2) % Johnson % (Auto) (2.6-8.5) % Eos % (Auto) (0-4.4) % Baso % (Auto) (0.2-1.2) % Lymph # (Auto) (0.9-3.2) K/mm3 Johnson # (Auto) (0.1-0.6) K/mm3 Eos # (Auto) (0-0.3) K/mm3 Baso # (Auto) (0.0-0.1) K/mm3 Abs Immat Gran (auto) (0.00-0.031) K/mm3 Absolute Neuts (auto) (1.3-6.7) K/mm3 Absolute Nucleated RBC (0.0-0.012) K/mm3 Band Neutrophils % Nucleated RBC % (0.0-0.2) % Platelet Estimate (Adequate) Hypochromasia Ovalocytes Schistocytes Sodium (137-145) mmol/L Potassium (3.4-5.0) mmol/L Chloride (98-107) mmol/L Carbon Dioxide (22-30) mmol/L Anion Gap (4-12) mmol/L BUN (9-20) mg/dL Creatinine (0.7-1.3) mg/dL Estim Creat Clear Calc ml/min Estimated GFR (59 - ) Glucose (65-110) mg/dL POC Capillary Glucose 297 H (65-105) mg/dl Hemoglobin A1c Calcium (8.4-10.2) mg/dL Phosphorus (2.5-4.5) mg/dL Magnesium (1.6-2.3) mg/dL Total Bilirubin (0.2-1.3) mg/dL AST (17-59) U/L ALT (6-50) U/L Alkaline Phosphatase (38-126) U/L Total Protein (6.3-8.2) g/dL Albumin (3.5-5.1) g/dL Urine Color Pending Urine Appearance Pending Urine pH Pending Ur Specific [place] Pending Urine Protein Pending Urine Glucose (UA) Pending Urine Ketones Pending Ur Blood (Man) Pending Urine Nitrate Pending Urine Bilirubin Pending Urine Urobilinogen Pending Leukocyte Esterase Rfl Pending <Kizzy Jiménez PA-C - Last Filed: 08/23/25 19:25> Lab Results 08/23/25 08/23/25 08/23/25 Range/Units 11:44 16:00 16:01 WBC 9.9 (4.5-10.0) K/mm3 RBC 5.38 (4.6-6.20) M/mm3 Hgb 12.6 L (14.0-18.0) g/dL Hct 42.7 (42.0-52.0) % MCV 79.4 L (80-100) fl MCH 23.4 L (26-34) pg MCHC 29.5 L (32-36) g/dl RDW 18.1 H (11.5-14.5) % Plt Count 363 (150-375) k/mm3 MPV 9.2 (7.4-10.4) fl Immature Gran % (Auto) 0.5 (0-0.5) % Neut % (Auto) 72.3 (45.5-73.1) % Lymph % (Auto) 11.0 L (18.3-44.2) % Johnson % (Auto) 14.3 H (2.6-8.5) % Eos % (Auto) 1.3 (0-4.4) % Baso % (Auto) 0.6 (0.2-1.2) % Lymph # (Auto) 1.09 (0.9-3.2) K/mm3 Johnson # (Auto) 1.4 H (0.1-0.6) K/mm3 Eos # (Auto) 0.1 (0-0.3) K/mm3 Baso # (Auto) 0.1 (0.0-0.1) K/mm3 Abs Immat Gran (auto) 0.05 H (0.00-0.031) K/mm3 Absolute Neuts (auto) 7.2 H (1.3-6.7) K/mm3 Absolute Nucleated RBC 0.000 (0.0-0.012) K/mm3 Band Neutrophils % Not Reportable Nucleated RBC % 0.0 (0.0-0.2) % Platelet Estimate Adequate (Adequate) Hypochromasia Occasional Ovalocytes Occasional Schistocytes None seen Sodium 129 L (137-145) mmol/L Potassium 4.1 (3.4-5.0) mmol/L Chloride 92 L (98-107) mmol/L Carbon Dioxide 16 L (22-30) mmol/L Anion Gap 21 H (4-12) mmol/L BUN 24 H D (9-20) mg/dL Creatinine 0.85 (0.7-1.3) mg/dL Estim Creat Clear Calc 120 ml/min Estimated GFR > 60 (59 - ) Glucose 551 H* (65-110) mg/dL POC Capillary Glucose > 500 H* (65-105) mg/dl Hemoglobin A1c Pending Calcium 8.7 (8.4-10.2) mg/dL Phosphorus 3.8 (2.5-4.5) mg/dL Magnesium 1.9 (1.6-2.3) mg/dL Total Bilirubin 0.9 (0.2-1.3) mg/dL AST 28 (17-59) U/L ALT 42 (6-50) U/L Alkaline Phosphatase 172 H (38-126) U/L Total Protein 7.4 (6.3-8.2) g/dL Albumin 3.6 (3.5-5.1) g/dL Urine Color Urine Appearance Urine pH Ur Specific [place] Urine Protein Urine Glucose (UA) Urine Ketones Ur Blood (Man) Urine Nitrate Urine Bilirubin Urine Urobilinogen Leukocyte Esterase Rfl 08/23/25 08/23/25 Range/Units 18:56 19:06 WBC (4.5-10.0) K/mm3 RBC (4.6-6.20) M/mm3 Hgb (14.0-18.0) g/dL Hct (42.0-52.0) % MCV (80-100) fl MCH (26-34) pg MCHC (32-36) g/dl RDW (11.5-14.5) % Plt Count (150-375) k/mm3 MPV (7.4-10.4) fl Immature Gran % (Auto) (0-0.5) % Neut % (Auto) (45.5-73.1) % Lymph % (Auto) (18.3-44.2) % Johnson % (Auto) (2.6-8.5) % Eos % (Auto) (0-4.4) % Baso % (Auto) (0.2-1.2) % Lymph # (Auto) (0.9-3.2) K/mm3 Johnson # (Auto) (0.1-0.6) K/mm3 Eos # (Auto) (0-0.3) K/mm3 Baso # (Auto) (0.0-0.1) K/mm3 Abs Immat Gran (auto) (0.00-0.031) K/mm3 Absolute Neuts (auto) (1.3-6.7) K/mm3 Absolute Nucleated RBC (0.0-0.012) K/mm3 Band Neutrophils % Nucleated RBC % (0.0-0.2) % Platelet Estimate (Adequate) Hypochromasia Ovalocytes Schistocytes Sodium (137-145) mmol/L Potassium (3.4-5.0) mmol/L Chloride (98-107) mmol/L Carbon Dioxide (22-30) mmol/L Anion Gap (4-12) mmol/L BUN (9-20) mg/dL Creatinine (0.7-1.3) mg/dL Estim Creat Clear Calc ml/min Estimated GFR (59 - ) Glucose (65-110) mg/dL POC Capillary Glucose 297 H (65-105) mg/dl Hemoglobin A1c Calcium (8.4-10.2) mg/dL Phosphorus (2.5-4.5) mg/dL Magnesium (1.6-2.3) mg/dL Total Bilirubin (0.2-1.3) mg/dL AST (17-59) U/L ALT (6-50) U/L Alkaline Phosphatase (38-126) U/L Total Protein (6.3-8.2) g/dL Albumin (3.5-5.1) g/dL Urine Color Pending Urine Appearance Pending Urine pH Pending Ur Specific [place] Pending Urine Protein Pending Urine Glucose (UA) Pending Urine Ketones Pending Ur Blood (Man) Pending Urine Nitrate Pending Urine Bilirubin Pending Urine Urobilinogen Pending Leukocyte Esterase Rfl Pending <Moncho Tillman MD - Last Filed: 08/23/25 19:21> ABG Data ABG results: 08/23/25 16:00 VBG pH 7.382 VBG pCO2 28.4 L* VBG pO2 51.5 H VBG HCO3 16.5 L O2 Delivery Device Room air O2 Liters/Min 0.0 FiO2 37 <Kizzy Jiménez PA-C - Last Filed: 08/23/25 19:25> 08/23/25 16:00 VBG pH 7.382 VBG pCO2 28.4 L* VBG pO2 51.5 H VBG HCO3 16.5 L O2 Delivery Device Room air O2 Liters/Min 0.0 FiO2 37 <Moncho Tillman MD - Last Filed: 08/23/25 19:21> Critical Care Time Critical Care Time Critical Care Time: Yes <Moncho Tillman MD - Last Filed: 08/23/25 19:21> Total Critical Care Time: 35 <Moncho Tillman MD - Last Filed: 08/23/25 19:21> Discharge Plan Discharge Clinical Impression: Hidradenitis suppurativa, Sinus tachycardia DKA (diabetic ketoacidosis) Qualifiers: Diabetes mellitus type: other specified (including KATHERINE) Diabetes mellitus complication detail: without coma Qualified Code(s): E13.10 - Other specified diabetes mellitus with ketoacidosis without coma <Kizzy Jiménez PA-C - Last Filed: 08/23/25 19:25> Patient Disposition: Still a Patient <Kizzy Jiménez PA-C - Last Filed: 08/23/25 19:25> Condition: Critical <Kizzy Jiménez PA-C - Last Filed: 08/23/25 19:25> Patient Language: German <Kizzy Jiménez PA-C - Last Filed: 08/23/25 19:25> Prescriptions: No Action secukinumab [Cosentyx (2 Syringes)] subcut ferrous sulfate 325 mg (65 mg iron) tablet 325 mg PO BID Qty: 180 1RF ascorbic acid (vitamin C) [Vitamin C] 500 mg tablet 500 mg PO DAILY Qty: 30 0RF Rx Instructions: LAST FILL FROM THIS OFFICE. pantoprazole 40 mg tablet,delayed release (DR/EC) 40 mg PO QAM Qty: 30 0RF <Kizzy Jiménez PA-C - Last Filed: 08/23/25 19:25> Follow-up/Referrals: Dinora Zheng, [employer] [Primary Care Provider, Internal Medicine] <Kizzy Jiménez PA-C - Last Filed: 08/23/25 19:25> Time of Disposition: 19:17 <Kizzy Jiménez PA-C - Last Filed: 08/23/25 19:25> 19:17 <Moncho Tillman MD - Last Filed: 08/23/25 19:21>
[2025-08-23] MEDS: SODIUM CHLORIDE 0.9% IV 1,000 ML 999 ML IV CONT ×2 (16:04→18:01)
[2025-08-23 16:15] LABS: Hematocrit 42.7 % (42.0-52.0); Hemoglobin 12.6 g/dL (14.0-18.0); Immature Granulocyte Percent A 0.5 % (0-0.5); Lymphocytes Absolute Auto 1.09 K/mm3 (0.9-3.2); Mean Corpuscular HGB Conc 29.5 g/dl (32-36); Mean Corpuscular Hemoglobin 23.4 pg (26-34); Mean Corpuscular Volume 79.4 fl (80-100); Nucleated Red Blood Cells Absolute Auto 0.000 K/mm3 (0.0-0.012); Nucleated Red Blood Cells Perc 0.0 % (0.0-0.2); Platelet Count Result 363 k/mm3 (150-375); Red Blood Count 5.38 M/mm3 (4.6-6.20); White Blood Count 9.9 K/mm3 (4.5-10.0)
[2025-08-23 16:21] LABS: Fractional Inspired Oxygen 37 %; HCO3 VBG 16.5 mEq/l (24.0-30.0); PO2 VBG 51.5 mmHg (35.0-45.0); pH VBG 7.382 (7.300-7.400)
[2025-08-23 16:25] LABS: Alanine Aminotransferase 42 U/L (6-50); Albumin Level 3.6 g/dL (3.5-5.1); Alkaline Phosphatase 172 U/L (38-126); Anion Gap 21 mmol/L (4-12); Aspartate Amino Transferase 28 U/L (17-59); Bilirubin,Total 0.9 mg/dL (0.2-1.3); Blood Urea Nitrogen 24 mg/dL (9-20); Calcium 8.7 mg/dL (8.4-10.2); Carbon Dioxide 16 mmol/L (22-30); Chloride 92 mmol/L (98-107); Estimated CRCL calculation 120 ml/min; Estimated Glomerular Filt Rate > 60; Glucose 551 mg/dL (65-110); Magnesium 1.9 mg/dL (1.6-2.3); Potassium 4.1 mmol/L (3.4-5.0); Sodium 129 mmol/L (137-145); Total Protein 7.4 g/dL (6.3-8.2)
[2025-08-23 16:32] LABS: Liters per Minute 0.0 LPM; PCO2 VBG 28.4 mmHg (42.0-48.0)
[2025-08-23 16:36] LABS: Hypochromasia Occasional; Ovalocytes Occasional; Schistocytes None Seen
[2025-08-23] MEDS: INSULIN HUMAN REGULAR (*BKC) 100 UNITS/ML 16.4 UNITS IV PUSH (18:04)
[2025-08-23] MEDS: INSULIN HUMAN REGULAR (*BKC) 100 UNITS in SODIUM CHLORIDE 0.9% IV 99 ML 10.96 UNITS IV CONT (18:05)
[2025-08-23 19:43] LABS: Add Urine Microscopic? YES; Appearance Urine Clear (Clear); Budding Yeast Urine Present /hpf; Glucose Urine UA 3+ mg/dL (Negative); Leukocyte Esterase Ur Negative LEU/UL (Negative); Need Manual Microscopic Reviewed; Nitrate Urine Negative (Negative); Specific Grav Ur 1.031 (1.001-1.035)
--- NOTE | 2025-08-23 20:13 | PC.NURSE ---
Per to run the solution of D5 and 0.45 saline with Potassium alone and not run the other Liter of D5 and 0.45
[2025-08-23] MEDS: KCL 20 MEQ/D5/0.45% SOD CHL 1,000 ML 150 ML IV CONT (20:36)
[2025-08-23 21:43] LABS: Anion Gap 10 mmol/L (4-12); Blood Urea Nitrogen 18 mg/dL (9-20); Calcium 7.7 mg/dL (8.4-10.2); Carbon Dioxide 22 mmol/L (22-30); Chloride 99 mmol/L (98-107); Estimated CRCL calculation 149 ml/min; Estimated Glomerular Filt Rate > 60; Glucose 208 mg/dL (65-110); Potassium 3.3 mmol/L (3.4-5.0); Sodium 131 mmol/L (137-145)
--- NOTE | 2025-08-23 22:03 | PC.NURSE ---
This patient, Patrick Conroy, was admitted to Intensive Care Unit-3. Patient/family oriented to hospital policies and general routines including ID bracelet, bed and alarms, visiting hours, pain management, procedures, bathroom and other care routines, personal items, smoking policy, room service/diet, and visiting hours. Information on how to activate the Rapid Response Team has been discussed. Patient/Family are encouraged to report perceived risks to care and to ask questions if they do not understand what they are told or what they should do.
[2025-08-23 22:06] LABS: Hemoglobin A1C 12.8 % (<5.7)
--- NOTE | 2025-08-23 22:08 | PM.IMHP ---
H&P: HPI History of Present Illness Date/Time: 08/23/25 22:08 Chief Complaint: Abnormal labs/elevated blood sugar Narrative: This is a 44-year-old male patient who has a history of hydradenitis suppurative and has been undergoing treatment with his local durable medical equipment repairer. The patient stated that he has been taking weekly steroids. He has no previous history of having diabetes. The patient reports that over the last couple weeks he just has been feeling ill. He endorses fatigue, increased thirst, dizziness, and frequent urination. He also has been having some vomiting and diarrhea. The patient was seen by his primary care doctor and was found to have a blood sugar over 500. Abnormal labs his hemoglobin was slightly low at 12.6, MCV 79.4, MCH 23.4, MCHC 29.5, and RDW 18.1, lymphocyte percentage 11.0. Venous blood gas CO2 was 28.4 with a PO2 51.5 bicarb 16.5. Sodium was initially 129 and improved to 131. Potassium initially 4.1 now 3.3. His glucose initially was 551 and is now 208. His hemoglobin A1c was 12.8. Urine shows 3+ glucose with 3+ ketones. Yeast is present in the urine. Chest/abdomen/pelvis CT was read as a following. No acute process in the chest, abdomen or pelvis. 2. Postsurgical changes detailed above, there is no rim-enhancing abscesses identified. 3. Incidental findings above The barrel charrer helper has been consulted. The patient was started on DKA protocol and placed in the ICU. The patient is being admitted to observation status on the date of service of 08/23/2025 Review of Systems Constitutional: Constitutional: Reports as per HPI and Reports no additional constitutional complaints Eyes: Eyes: Reports as per HPI and Reports no additional eye complaints ENT: Reports system reviewed and no additional complaints, except as documented and Reports Normal hearing present Cardiovascular: Cardiovascular: Reports no additional cardiovascular complaints Respiratory: Respiratory: Reports as per HPI and Reports no additional respiratory complaints Gastrointestinal: Gastrointestinal: Reports as per HPI and Reports no additional gastrointestinal complaints Musculoskeletal: Musculoskeletal: Reports no additional musculoskeletal complaints Integumentary/Breasts: Skin/Breast: Reports system reviewed and no additional complaints, except as docu Neurologic: Reports system reviewed and no additional complaints, except as documented and Reports Normal hearing present Psychiatric: Psychiatric: Reports no additional psychiatric complaints and Reports as per HPI Hematologic/Lymphatic: Hematologic/Lymphatic: Reports no additional hematologic/lymphatic complaints Allergic/Immunologic: Allergic/Immunologic: Reports no additional allergic/immunologic complaints FORMERLY [facility], [facility]–1983 Past Medical History Medical History Hidradenitis suppurativa Migraine Asthma Surgical History Surgical History No history of previous surgery No pertinent past surgical history Family History Family History Mother Diabetes mellitus Hypertension Heart attack Cerebrovascular accident Father Alcohol abuse Family history of congestive heart failure Family history of chronic obstructive pulmonary disease Asthma Social History Social History Social History: Caffeine- 1 soda's daily. The patient lives with his and 12-year-old son. 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 Surrogate medical decision maker: Anastasiya Conroy, spouse. Code status: Full code. Smoking packs per day: 0.01 Smoking cigarettes per day: 0.2 Years smoked: 20 Smoking pack-years: 0.20 Smoking status: Current some day smoker Tobacco type: cigarettes Alcohol intake: former Substance use: current Substance use type: marijuana Other substance usage details: edibles Last use: 08/22/25 Lack of Transportation: No Lack of Food: Never True Current Housing: I Have Housing Concerned About Future Housing: No Difficulty Paying Gas/Electric Bills: No Difficulty Paying for Meds: No Currently Unemployed: No Education: High School Diploma/GED Difficulty w/ Childcare or Family Care: No Living arrangements: with family Occupation/Education: occupation Spiritual care concerns: No Agree to blood products: Yes Meds Home Medications and Allergies Home Medications ?Medication ?Instructions ?Recorded ?Confirmed ?Type secukinumab See Rx Instructions subcut .COMPLEX 04/27/24 08/23/25 History ferrous sulfate 325 mg (65 mg 325 mg PO BID #180 tabs 10/06/24 08/23/25 Rx iron) tablet ascorbic acid (vitamin C) 500 mg 500 mg PO DAILY #30 tabs 05/28/25 08/23/25 Rx tablet (Vitamin C) dexamethasone 4 mg tablet 4 mg PO WEEKLY 08/23/25 08/23/25 History Held on 08/26/25. Instructions: Resume on 09/11/25. please discuss this medication with prescribing provider blood sugar diagnostic (OneTouch #1 pkg 08/26/25 Rx Verio test strips) blood-glucose meter (OneTouch #1 pkg 08/26/25 Rx Verio Flex Meter) insulin degludec 100 unit/mL (3 22 unit (0.22 mL) subcut HS #15 mL 08/26/25 Rx mL) subcutaneous pen lancets 30 gauge (OneTouch Delica #1 pkg 08/26/25 Rx Plus Lancet) metformin 500 mg tablet 500 mg PO BID #90 tabs 08/26/25 Rx pen needle, diabetic 32 gauge x #1 pkg 08/26/25 Rx / potassium chloride 20 mEq oral 40 meq PO DAILY #5 ea 08/26/25 Rx packet pantoprazole 40 mg tablet,delayed 40 mg PO QAM #30 tabs 09/03/25 Rx release Allergies Allergy/AdvReac Type Severity Reaction Status Date / Time No Known Allergies Allergy Verified 08/23/25 21:45 Vital Signs Vital Signs - 24 hr 08/23/25 11:41 08/23/25 14:40 08/23/25 15:47 Temperature 98.3 F Pulse Rate 125 H 135 H 135 H Respiratory Rate 18 20 20 Blood Pressure 126/85 131/100 H Pulse Oximetry 97 96 Oxygen Delivery Room Air Room Air 08/23/25 16:19 08/23/25 16:34 08/23/25 17:24 Temperature Pulse Rate 125 H 130 H Respiratory Rate 22 H Blood Pressure 144/80 H Pulse Oximetry 98 95 96 Oxygen Delivery 08/23/25 17:25 08/23/25 17:30 08/23/25 17:31 Temperature Pulse Rate Respiratory Rate Blood Pressure 136/86 Pulse Oximetry 95 96 95 Oxygen Delivery 08/23/25 17:46 08/23/25 17:47 08/23/25 18:04 Temperature Pulse Rate Respiratory Rate Blood Pressure 142/92 H Pulse Oximetry 97 96 Oxygen Delivery 08/23/25 18:15 08/23/25 18:54 08/23/25 19:00 Temperature Pulse Rate 123 H Respiratory Rate 18 Blood Pressure 147/81 H Pulse Oximetry 98 99 97 Oxygen Delivery Exam Const: General: cooperative, healthy appearing, comfortable, no acute distress, well developed, awake, Physically active, average body habitus and well nourished Nutritional Appearance: average body habitus and well nourished Orientation/consciousness: oriented to person, oriented to place, oriented to time and patient oriented x3 Limitations: no limitations HENMT: Head: normal to inspection, No palpable skull fracture present, normocephalic, atraumatic and abrasion Ears: hearing grossly normal bilaterally, external ears normal and TM's normal bilaterally Face/Nose/Sinus: Normal external nose present, Normal nares present and No nasal polyps present Eyes: General: appearance normal, both eyes and all related structures Alignment and Position: alignment normal Periorbital: periorbital findings normal Eyelids: eyelids normal EOM: EOMs intact bilaterally Neck: Neck: normal visual inspection, full ROM, no lymphadenopathy, trachea midline and supple Chest: Chest palpation & inspection: normal inspection of the chest Resp: Effort & Inspection: normal respiratory effort Auscultation: clear to auscultation bilaterally Percussion: percussion normal Cardio: Palpation: normal PMI Rate: tachycardic Rhythm: regular rhythm Heart sounds: S1 normal heart sound present and S2 normal heart sound present Peripheral pulses: Peripheral pulses 2+ throughout GI: Inspection: normal to inspection Percussion: Yes normal to percussion Auscultation: normal bowel sounds Rectal Exam: deferred : General: Yes no CVA tenderness Back/Spine/Pelvis: Back: no CVA tenderness Skin: General skin exam: normal color Hair: normal Nails: normal Other: Patient has multiple tunneling to bilateral axillary area. No drainage noted at this time. Neuro: General: oriented to person, oriented to place, oriented to time and patient oriented x3 Cranial nerves: Yes Equal, round and reactive pupils present and Yes Normal hearing present Cognition (Neuro): normal cognition Speech: normal speech Gait exam (Neuro): Normal gait present Extrem: General: normal to inspection Right upper extremity: normal to inspection and shoulder/upper arm Left upper extremity: normal to inspection Psych: Appearance: grossly normal Mental Status: mental status grossly normal Speech and movement: Normal speech and movement present H&P: Results Labs Labs: Short CBC 08/23/25 Range/Units 16:00 WBC 9.9 (4.5-10.0) K/mm3 Hgb 12.6 L (14.0-18.0) g/dL Hct 42.7 (42.0-52.0) % Plt Count 363 (150-375) k/mm3 BMP 08/23/25 08/23/25 16:01 21:12 Sodium 129 L 131 L Potassium 4.1 3.3 L Chloride 92 L 99 Carbon Dioxide 16 L 22 BUN 24 H D 18 Creatinine 0.85 0.67 L Glucose 551 H* 208 H Calcium 8.7 7.7 L Liver Function 08/23/25 Range/Units 16:01 Total Bilirubin 0.9 (0.2-1.3) mg/dL AST 28 (17-59) U/L ALT 42 (6-50) U/L Alkaline Phosphatase 172 H (38-126) U/L Albumin 3.6 (3.5-5.1) g/dL Urine 08/23/25 Range/Units 19:06 Urine Color Yellow (Yellow) Urine Appearance Clear (Clear) Urine pH 5.0 (5.0-9.0) Ur Specific [place] 1.031 (1.001-1.035) Urine Protein Negative (Negative) mg/dL Urine Glucose (UA) 3+ H (Negative) mg/dL ECG Interpretation: intervals Mcdonough Rate: 131 P: 40 WV: 118 QRS: -7 QRSD: 85 T: 67 QT: 373 QTc: 552 Interpretive Statements SINUS TACHYCARDIA NONSPECIFIC T-WAVE ABNORMALITY- HIGH LATERAL LEADS ABNORMAL ECG No previous ECG available for comparison Electronically Signed On 08-23-2025 12:13:16 CDT by Samuel Childers Imaging CT scan - abdomen: Radiologist's impression: Impressions Chest/Abdomen/Pelvis CT 08/23/25 17:07 IMPRESSION: 1. No acute process in the chest, abdomen or pelvis. 2. Postsurgical changes detailed above, there is no rim-enhancing abscesses identified. 3. Incidental findings above Assessment and Plan Assessment and plan (1) DKA (diabetic ketoacidosis): Qualifiers: Diabetes mellitus complication detail: without coma Diabetes mellitus type: other specified (including KATHERINE) Qualified Code(s): E13.10 - Other specified diabetes mellitus with ketoacidosis without coma Code(s): E11.10 - Type 2 diabetes mellitus with ketoacidosis without coma Status: Acute Assessment and Plan: -DKA protocol. At this time his anion gap is closed at 10. ( His initial anion gap was 21). We will start him on Lantus however as per her his weight would have received a large dose. I am starting out at 16 units which is 0.1 units/kilogram/per day for his body weight. I did discuss dosing with pharmacy. We will also do moderate dose sliding scale insulin once he is on the insulin drip. -dietary consult greatly be appreciated. -school vocational educator would greatly be appreciated. -A1c was 12.8. He had 3+ glucose in his urine and 3+ ketones. -the patient was found to have a blood sugar greater than 500 per his primary care doctor and was sent to the ER. -the patient will be on a diabetic diet once he is off insulin drip. -the patient stated with his hydradenitis suppurativa he has been on steroids weekly. This could be steroid induced diabetes. (2) Iron deficiency anemia: Qualifiers: Iron deficiency anemia type: unspecified iron deficiency Qualified Code(s): D50.9 - Iron deficiency anemia, unspecified Code(s): D50.9 - Iron deficiency anemia, unspecified Status: Acute Assessment and Plan: -holding his iron supplement for now. -his hemoglobin is 12.6 and 42.7 which is higher than his baseline. (3) Asthma: Qualifiers: Asthma complication type: unspecified Asthma persistence: unspecified Asthma severity: moderate Qualified Code(s): J45.909 - Unspecified asthma, uncomplicated Code(s): J45.909 - Unspecified asthma, uncomplicated Status: Acute Assessment and Plan: -the patient stated he was diagnosed as a child and rarely uses his inhaler. (4) Hidradenitis suppurativa: Code(s): L73.2 - Hidradenitis suppurativa Status: Chronic Assessment and Plan: -the patient routinely visits his durable medical equipment repairer. -he has been on weekly steroids. -he has been on Cosentyx -the patient has chronic tunneling under bilateral armpits. The patient states that they have been draining for years. He does not have a white count at this time. No antibiotics were started at this time. -CT scan was read as. No acute process in the chest, abdomen or pelvis. 2. Postsurgical changes detailed above, there is no rim-enhancing abscesses identified. 3. Incidental findings above (renal cyst kidney stones) Plan Incidental findings on the CT scan right Kidney: Right kidney simple appearing renal cysts the largest mid pole 3 x 3.4 cm with multiple renal calculi the largest mid pole 4 mm, no hydronephrosis or hydroureter. Left Kidney: Left kidney multiple simple appearing renal cysts the largest mid pole 1 x 1 cm. Therefore renal ultrasound has been ordered. Quality VTE Prophylaxis VTE prophylaxis: pharmacologic ordered
[2025-08-23 22:41] LABS: MRSA (PCR) NOT DETECTED (NOT DETECTE)
--- NOTE | 2025-08-23 22:44 | PC.NURSE ---
Insulin drip on hold potassium level is 3.3. Cheryl Miller transitioning him off drip to Lantus due to gap 10.
[2025-08-23] MEDS: INSULIN GLARGINE (*BKC) 100 UNITS/ML 16 UNITS SUB-Q ×2 (22:56→22:57)
--- NOTE | 2025-08-23 23:36 | PC.NURSE ---
Left message for prosthetics lab technician. Gave patient diabetic education materials.
[2025-08-24] VITALS (13 sets, daily range): BP systolic 115–154; BP diastolic 67–95; PULSE 104–124; RESP 16–25; TEMP 35.7–37.4; O2SAT 94–99; BMI 32.8
[2025-08-24] MEDS: INSULIN ASPART (*BKC) 100 UNITS/ML 6 UNITS SUB-Q (00:18)
[2025-08-24 01:03] LABS: Anion Gap 8 mmol/L (4-12); Blood Urea Nitrogen 17 mg/dL (9-20); Calcium 7.6 mg/dL (8.4-10.2); Carbon Dioxide 24 mmol/L (22-30); Chloride 98 mmol/L (98-107); Estimated CRCL calculation 146 ml/min; Estimated Glomerular Filt Rate > 60; Glucose 312 mg/dL (65-110); Potassium 3.2 mmol/L (3.4-5.0); Sodium 130 mmol/L (137-145)
[2025-08-24] MEDS: POTASSIUM CHLORIDE 20 MEQ ER TABLET 40 MEQ PO (01:17)
[2025-08-24 05:28] LABS: Hematocrit 38.3 % (42.0-52.0); Hemoglobin 11.2 g/dL (14.0-18.0); Immature Granulocyte Percent A 0.7 % (0-0.5); Lymphocytes Absolute Auto 1.19 K/mm3 (0.9-3.2); Mean Corpuscular HGB Conc 29.2 g/dl (32-36); Mean Corpuscular Hemoglobin 23.4 pg (26-34); Mean Corpuscular Volume 80.0 fl (80-100); Nucleated Red Blood Cells Absolute Auto 0.000 K/mm3 (0.0-0.012); Nucleated Red Blood Cells Perc 0.0 % (0.0-0.2); Platelet Count Result 292 k/mm3 (150-375); Red Blood Count 4.79 M/mm3 (4.6-6.20); White Blood Count 6.8 K/mm3 (4.5-10.0)
[2025-08-24 05:38] LABS: Anion Gap 10 mmol/L (4-12); Blood Urea Nitrogen 15 mg/dL (9-20); Calcium 7.8 mg/dL (8.4-10.2); Carbon Dioxide 25 mmol/L (22-30); Chloride 96 mmol/L (98-107); Estimated CRCL calculation 154 ml/min; Estimated Glomerular Filt Rate > 60; Glucose 264 mg/dL (65-110); Potassium 4.1 mmol/L (3.4-5.0); Sodium 131 mmol/L (137-145)
[2025-08-24 05:51] LABS: Anisocytosis 1+; Schistocytes None Seen
[2025-08-24 05:53] LABS: Ovalocytes Occasional
[2025-08-24] MEDS: ENOXAPARIN 40 MG/0.4 ML SYRINGE SUB-Q (08:17)
[2025-08-24] MEDS: INSULIN ASPART (*BKC) 100 UNITS/ML SUB-Q ×7 (08:17→20:50)
[2025-08-24] MEDS: CALCIUM GLUC 2,000 MG/NS 100ML 2,000 MG/100 ML BAG 100 MG IVPB (08:18)
--- NOTE | 2025-08-24 09:02 | PC.NURSE ---
Report given to ARMANDO Hernandez @ 0905. Pt to room 316-2
--- NOTE | 2025-08-24 09:26 | PC.NURSE ---
Off unit via wheelchair @ [id number]
--- NOTE | 2025-08-24 10:56 | WPDCNINT ---
Assessment and Plan Assessment and plan (1) DKA (diabetic ketoacidosis): Qualifiers: Diabetes mellitus complication detail: without coma Diabetes mellitus type: other specified (including KATHERINE) Qualified Code(s): E13.10 - Other specified diabetes mellitus with ketoacidosis without coma Code(s): E11.10 - Type 2 diabetes mellitus with ketoacidosis without coma Status: Acute Assessment and Plan: DKA and patient with new onset diabetes mellitus which may have been exacerbated by steroids although patient was only taking 4 mg of dexamethasone once a week Pt was given IVF bolus and started on infusion Patient was also treated with Insulin infusion started Anion gap has closed and symptoms improved. Patient has been transition to subcutaneous insulin. I will increase Lantus to 20 units. I will also add with meal insulin. Consult fish roe processor and dietitian Continue sliding scale Dosing dexamethasone (2) Abnormal CT of the abdomen: Code(s): R93.5 - Abnormal findings on diagnostic imaging of other abdominal regions, including retroperitoneum Status: Acute Assessment and Plan: CT abdomen pelvis showed cystic lesion off the kidneys which was confirmed with ultrasound which showed benign cyst in right kidney (3) Hidradenitis suppurativa: Code(s): L73.2 - Hidradenitis suppurativa Status: Chronic Assessment and Plan: Steroids on hold Plan Lovenox for DVT prophylaxis Transfer out ICU today [employer] Consult Note Consult date: 08/24/25 Reason for consult: DKA HPI: Patrick Conroy is a 44 year old male with past medical history of hidradenitis suppurativa who is on treatment with COSENTYX and also has been on intermittent steroids presented to ER yesterday with chief complaint of high blood sugars. Patient states her last 3 weeks he has been having excessive thirst and urinating multiple times a day. He suspected that he had diabetes and was trying to get an appointment but was unable to get an appointment stressed yesterday. He also had some shortness of breath on exertion. He denies any fever chest pain cough abdominal pain nausea vomiting diarrhea hematuria hematochezia dysuria. He does have history of constipation. All other systems were reviewed and were negative. He went to his primary care doctor yesterday is found to be having blood glucose of 4 than 500 and was sent to ER. Workup in the ER showed hemoglobin was slightly low at 12.6, MCV 79.4, MCH 23.4, MCHC 29.5, and RDW 18.1, lymphocyte percentage 11.0. Venous blood gas CO2 was 28.4 with a PO2 51.5 bicarb 16.5. Sodium was initially 129 and improved to 131. Potassium initially 4.1 now 3.3. His glucose initially was 551 and is now 208. His hemoglobin A1c was 12.8. Urine shows 3+ glucose with 3+ ketones. Yeast is present in the urine. Chest/abdomen/pelvis CT was read as a following. No acute process in the chest, abdomen or pelvis. 2. Postsurgical changes detailed above, there is no rim-enhancing abscesses identified. Patient was given IV fluid bolus and started on IV fluids infusion and along with insulin infusion admitted to ICU for further evaluation management. Overnight patient's anion gap closed and patient was transition to subcutaneous insulin. This morning he feels better and denies any new complaints. All other systems were reviewed and were negative. Review of Systems Review of Systems: All systems reviewed & are unremarkable except as noted in HPI and below (HPI) [facility] Past Medical History Medical History Hidradenitis suppurativa Migraine Asthma Surgical History Surgical History No history of previous surgery No pertinent past surgical history Family History Family History Mother Diabetes mellitus Hypertension Heart attack Cerebrovascular accident Father Alcohol abuse Family history of congestive heart failure Family history of chronic obstructive pulmonary disease Asthma Social History Social History Social History: Caffeine- 1 soda's daily. The patient lives with his and 12-year-old son. 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 Surrogate medical decision maker: Anastasiya Conroy, spouse. Code status: Full code. Smoking packs per day: 0.01 Smoking cigarettes per day: 0.2 Years smoked: 20 Smoking pack-years: 0.20 Smoking status: Current some day smoker Tobacco type: cigarettes Alcohol intake: former Substance use: current Substance use type: marijuana Other substance usage details: edibles Last use: 08/22/25 Lack of Transportation: No Lack of Food: Never True Current Housing: I Have Housing Concerned About Future Housing: No Difficulty Paying Gas/Electric Bills: No Difficulty Paying for Meds: No Currently Unemployed: No Education: High School Diploma/GED Difficulty w/ Childcare or Family Care: No Living arrangements: with family Occupation/Education: occupation Spiritual care concerns: No Agree to blood products: Yes Meds Home Medications and Allergies Home Medications ?Medication ?Instructions ?Recorded ?Confirmed ?Type secukinumab See Rx Instructions subcut .COMPLEX 04/27/24 08/23/25 History ferrous sulfate 325 mg (65 mg 325 mg PO BID #180 tabs 10/06/24 08/23/25 Rx iron) tablet ascorbic acid (vitamin C) 500 mg 500 mg PO DAILY #30 tabs 05/28/25 08/23/25 Rx tablet (Vitamin C) pantoprazole 40 mg tablet,delayed 40 mg PO QAM #30 tabs 05/29/25 08/23/25 Rx release dexamethasone 4 mg tablet 4 mg PO WEEKLY 08/23/25 08/23/25 History Allergies Allergy/AdvReac Type Severity Reaction Status Date / Time No Known Allergies Allergy Verified 08/23/25 21:45 Vital Signs Vital Signs - 24 hr 08/23/25 11:41 08/23/25 14:40 08/23/25 15:47 Temperature 36.8 C Pulse Rate 125 H 135 H 135 H Respiratory Rate 18 20 20 Blood Pressure 126/85 131/100 H Pulse Oximetry 97 96 Oxygen Delivery Room Air Room Air 08/23/25 16:19 08/23/25 16:34 08/23/25 17:24 Temperature Pulse Rate 125 H 130 H Respiratory Rate 22 H Blood Pressure 144/80 H Pulse Oximetry 98 95 96 Oxygen Delivery 08/23/25 17:25 08/23/25 17:30 08/23/25 17:31 Temperature Pulse Rate Respiratory Rate Blood Pressure 136/86 Pulse Oximetry 95 96 95 Oxygen Delivery 08/23/25 17:46 08/23/25 17:47 08/23/25 18:04 Temperature Pulse Rate Respiratory Rate Blood Pressure 142/92 H Pulse Oximetry 97 96 Oxygen Delivery 08/23/25 18:15 08/23/25 18:54 08/23/25 19:00 Temperature Pulse Rate 123 H Respiratory Rate 18 Blood Pressure 147/81 H Pulse Oximetry 98 99 97 Oxygen Delivery 08/23/25 22:00 08/23/25 22:00 08/23/25 23:00 Temperature 36.8 C Pulse Rate 113 H 113 H 116 H Respiratory Rate 18 18 Blood Pressure 126/66 130/72 Pulse Oximetry 98 95 Oxygen Delivery 08/24/25 00:00 08/24/25 00:00 08/24/25 00:00 Temperature 36.9 C Pulse Rate 108 H 111 H Respiratory Rate 23 H Blood Pressure 122/75 Pulse Oximetry 97 Oxygen Delivery Room Air 08/24/25 01:00 08/24/25 02:00 08/24/25 02:00 Temperature 36.9 C Pulse Rate 108 H 108 H 108 H Respiratory Rate 24 H 25 H Blood Pressure 139/81 122/74 Pulse Oximetry 98 97 Oxygen Delivery 08/24/25 03:00 08/24/25 04:00 08/24/25 04:00 Temperature 36.9 C Pulse Rate 106 H 105 H Respiratory Rate 22 H 24 H Blood Pressure 131/77 126/68 Pulse Oximetry 98 97 Oxygen Delivery Room Air 08/24/25 04:00 08/24/25 05:00 08/24/25 05:15 Temperature Pulse Rate 105 H 106 H Respiratory Rate 22 H Blood Pressure 115/72 Pulse Oximetry 98 98 Oxygen Delivery Room Air 08/24/25 06:00 08/24/25 06:00 08/24/25 08:00 Temperature 36.9 C 36.8 C Pulse Rate 104 H 104 H 113 H Respiratory Rate 23 H 23 H Blood Pressure 128/67 143/80 H Pulse Oximetry 97 97 Oxygen Delivery 08/24/25 08:00 08/24/25 08:00 08/24/25 10:00 Temperature 35.9 C L Pulse Rate 108 H 115 H Respiratory Rate 16 Blood Pressure 124/82 Pulse Oximetry 99 Oxygen Delivery Room Air Exam Narrative: General: Pt is alert awake and in NAD Lungs/Chest: Trachea central Clear BS B/L, No crackles or wheezing. Cardiac: RRR. Normal S1 S2. No murmurs Circulation: Pedal pulses are intact and symmetrical. Abdomen: Normal bowel sounds.. Soft. NT. ND. Extremities: No clubbing, cyanosis or edema. Warm : Sigala in place Neurologic: Follows commands. Moves all 4 extremities PERRL Skin: No Rash, Patient has multiple tunneling to bilateral axillary area. No drainage noted at this time. Results Labs 08/24/25 04:36 08/24/25 04:36 Labs: Impressions Chest/Abdomen/Pelvis CT 08/23/25 17:07 IMPRESSION: 1. No acute process in the chest, abdomen or pelvis. 2. Postsurgical changes detailed above, there is no rim-enhancing abscesses identified. 3. Incidental findings above Renal Ultrasound 08/24/25 08:24 IMPRESSION: 1. Benign cyst in right kidney. Short CBC 08/23/25 08/24/25 Range/Units 16:00 04:36 WBC 9.9 6.8 (4.5-10.0) K/mm3 Hgb 12.6 L 11.2 L (14.0-18.0) g/dL Hct 42.7 38.3 L (42.0-52.0) % Plt Count 363 292 (150-375) k/mm3 BMP 08/23/25 08/23/25 08/24/25 16:01 21:12 00:48 Sodium 129 L 131 L 130 L Potassium 4.1 3.3 L 3.2 L Chloride 92 L 99 98 Carbon Dioxide 16 L 22 24 BUN 24 H D 18 17 Creatinine 0.85 0.67 L 0.67 L Glucose 551 H* 208 H 312 H Calcium 8.7 7.7 L 7.6 L 08/24/25 04:36 Sodium 131 L Potassium 4.1 Chloride 96 L Carbon Dioxide 25 BUN 15 Creatinine 0.64 L Glucose 264 H Calcium 7.8 L Liver Function 08/23/25 Range/Units 16:01 Total Bilirubin 0.9 (0.2-1.3) mg/dL AST 28 (17-59) U/L ALT 42 (6-50) U/L Alkaline Phosphatase 172 H (38-126) U/L Albumin 3.6 (3.5-5.1) g/dL Urine 08/23/25 Range/Units 19:06 Urine Color Yellow (Yellow) Urine Appearance Clear (Clear) Urine pH 5.0 (5.0-9.0) Ur Specific Bertrand 1.031 (1.001-1.035) Urine Protein Negative (Negative) mg/dL Urine Glucose (UA) 3+ H (Negative) mg/dL Quality VTE Prophylaxis VTE prophylaxis: pharmacologic ordered Hospitalist MIPS Advance Care Plan I have confirmed that the patient's Advanced Care Plan is present, code status is documented, or surrogate decision maker is listed in patient medical record.: Yes Medication Reconciliation I have utilized all available resources to obtain, update and review the patients current medications (includes all prescriptions, OTC, herbals, cannabis, and nutritional supplements).: Yes
--- NOTE | 2025-08-24 13:58 | PC.NURSE ---
Outpatient DSMT and MNT started. [facility] PCP is Dinora Zheng.
--- NOTE | 2025-08-24 17:38 | ECG_ITS ---
Test Date: 2025-08-24 17:55:54 Measurements Intervals [place]ole Rate: 125 P: 4 ME: 83 QRS: 8 QRSD: 85 T: 61 QT: 354 QTc: 512 Interpretive Statements SINUS TACHYCARDIA ST ELEVATION IN ANTERIOR LEADS- PROBABLY EARLY REPOLARIZATION ABNORMALITY ABNORMAL ECG Compared to ECG 08/23/2025 11:50:43 NO SIGNIFICANT CHANGE Electronically Signed On 08-24-2025 19:32:08 CDT by Samuel Irvin D.O.
[2025-08-24] MEDS: CALCIUM CARBONATE (TUMS) 500 MG (200 MG ELEMENTAL) PO (17:49)
[2025-08-24] MEDS: PANTOPRAZOLE 40 MG TABLET PO (17:50)
[2025-08-24] MEDS: INSULIN GLARGINE (*BKC) 100 UNITS/ML 20 UNITS SUB-Q (20:51)
[2025-08-24] MEDS: SODIUM CHLORIDE 0.9% IV 1,000 ML 999 ML IV CONT (21:25)
[2025-08-25 05:00] VITALS: BP 155/91; PULSE 102; RESP 16; TEMP 36.1; O2SAT 98
[2025-08-25 06:36] LABS: Hematocrit 36.5 % (42.0-52.0); Hemoglobin 10.5 g/dL (14.0-18.0); Mean Corpuscular HGB Conc 28.8 g/dl (32-36); Mean Corpuscular Hemoglobin 23.4 pg (26-34); Mean Corpuscular Volume 81.5 fl (80-100); Platelet Count Result 260 k/mm3 (150-375); Red Blood Count 4.48 M/mm3 (4.6-6.20); White Blood Count 5.8 K/mm3 (4.5-10.0)
[2025-08-25 07:02] LABS: Alanine Aminotransferase 25 U/L (6-50); Albumin Level 2.7 g/dL (3.5-5.1); Alkaline Phosphatase 120 U/L (38-126); Anion Gap 7 mmol/L (4-12); Aspartate Amino Transferase 24 U/L (17-59); Bilirubin,Total 0.4 mg/dL (0.2-1.3); Blood Urea Nitrogen 8 mg/dL (9-20); Calcium 7.5 mg/dL (8.4-10.2); Carbon Dioxide 23 mmol/L (22-30); Chloride 99 mmol/L (98-107); Estimated CRCL calculation 183 ml/min; Estimated Glomerular Filt Rate > 60; Glucose 271 mg/dL (65-110); Magnesium 2.1 mg/dL (1.6-2.3); Potassium 3.4 mmol/L (3.4-5.0); Sodium 129 mmol/L (137-145); Total Protein 5.9 g/dL (6.3-8.2)
[2025-08-25] MEDS: INSULIN ASPART (*BKC) 100 UNITS/ML SUB-Q ×7 (09:21→21:13)
[2025-08-25] MEDS: PANTOPRAZOLE 40 MG TABLET PO (09:23)
--- NOTE | 2025-08-25 13:32 | PM.IMPN ---
Progress Note: A&P Assessment and Plan (1) DKA (diabetic ketoacidosis): Qualifiers: Diabetes mellitus complication detail: without coma Diabetes mellitus type: other specified (including KATHERINE) Qualified Code(s): E13.10 - Other specified diabetes mellitus with ketoacidosis without coma Code(s): E11.10 - Type 2 diabetes mellitus with ketoacidosis without coma Status: Acute Assessment and Plan: DKA and patient with new onset diabetes mellitus which may have been exacerbated by steroids although patient was only taking 4 mg of dexamethasone once a week Pt was given IVF bolus and started on infusion Patient was also treated with Insulin infusion started Anion gap has closed and symptoms improved. Patient has been transition to subcutaneous insulin. I will increase Lantus to 20 units. I will also add with meal insulin. Consult billiard table mechanic and dietitian Continue sliding scale -holding dexamethasone will increase lantus just a bi- 22 units he is agreeable to start metformin cr/bun 0.54/8, gfr 60 will recheck labs in am and if stable will anticiptae discharge (2) Abnormal CT of the abdomen: Code(s): R93.5 - Abnormal findings on diagnostic imaging of other abdominal regions, including retroperitoneum Status: Acute Assessment and Plan: CT abdomen pelvis showed cystic lesion off the kidneys which was confirmed with ultrasound which showed benign cyst in right kidney (3) Hidradenitis suppurativa: Code(s): L73.2 - Hidradenitis suppurativa Status: Chronic Assessment and Plan: Steroids on hold Plan Lovenox for DVT prophylaxis anticipate discharge home tomorrow Time Spent With Patient Time with patient: 25 - 35 minutes Subjective Date/time seen: 08/25/25 13:32 Interval history: Patrick Conroy is a 44 year old male with past medical history of hidradenitis suppurativa who is on treatment with COSENTYX and also has been on intermittent steroids admitted for high blood sugars. Patient states her last 3 weeks he has been having excessive thirst and urinating multiple times a day. He suspected that he had diabetes and was trying to get an appointment. He went to his primary care doctor yesterday is found to be having blood glucose of 4 than 500 and was sent to ER. He denies any fever chest pain cough abdominal pain nausea vomiting diarrhea hematuria hematochezia dysuria. Intermittent constipation. Workup in the ER showed hemoglobin was slightly low at 12.6, MCV 79.4, MCH 23.4, MCHC 29.5, and RDW 18.1, lymphocyte percentage 11.0. Venous blood gas CO2 was 28.4 with a PO2 51.5 bicarb 16.5. Sodium was initially 129 and improved to 131. Potassium initially 4.1 now 3.3. His glucose initially was 551 and is now 208. His hemoglobin A1c was 12.8. Urine shows 3+ glucose with 3+ ketones. Yeast is present in the urine. Chest/abdomen/pelvis CT was read as a following. No acute process in the chest, abdomen or pelvis. 2. Postsurgical changes detailed above, there is no rim-enhancing abscesses identified. Patient was given IV fluid bolus and started on IV fluids infusion and along with insulin infusion admitted to ICU for further evaluation management. Overnight patient's anion gap closed and patient was transition to subcutaneous insulin. He was downgraded to [facility] floor yesterday. Assuming care. Pt is seen and examined. He is doing fairly well this afternoon, feels overwhelmed with a dx, diet, meds. States will see billiard table mechanic as an outpt. He is ok with starting metfromin and lantus upon discharge. He denies chest pain, sob, thirst, shakiness. Reports some constipation but denies the need for any meds. Review of Systems Review of Systems: resting in bed All systems reviewed & are unremarkable except as noted in HPI and below (HPI) Constitutional: Constitutional: Reports as per HPI and Reports no additional constitutional complaints Eyes: Eyes: Reports as per HPI and Reports no additional eye complaints ENT: Reports system reviewed and no additional complaints, except as documented and Reports Normal hearing present Cardiovascular: Cardiovascular: Reports no additional cardiovascular complaints Respiratory: Respiratory: Reports as per HPI and Reports no additional respiratory complaints Gastrointestinal: Gastrointestinal: Reports as per HPI and Reports no additional gastrointestinal complaints Musculoskeletal: Musculoskeletal: Reports no additional musculoskeletal complaints Integumentary/Breasts: Skin/Breast: Reports system reviewed and no additional complaints, except as docu Neurologic: Reports system reviewed and no additional complaints, except as documented and Reports Normal hearing present Psychiatric: Psychiatric: Reports no additional psychiatric complaints and Reports as per HPI Hematologic/Lymphatic: Hematologic/Lymphatic: Reports no additional hematologic/lymphatic complaints Allergic/Immunologic: Allergic/Immunologic: Reports no additional allergic/immunologic complaints Exam Narrative: General: Pt is alert awake and in NAD Lungs/Chest: Trachea central Clear BS B/L, No crackles or wheezing. Cardiac: RRR. Normal S1 S2. No murmurs Circulation: Pedal pulses are intact and symmetrical. Abdomen: Normal bowel sounds.. Soft. NT. ND. Extremities: No clubbing, cyanosis or edema. Warm : Sigala in place Neurologic: Follows commands. Moves all 4 extremities PERRL Skin: No Rash, Patient has multiple tunneling to bilateral axillary area. No drainage noted at this time. Const: General: cooperative, healthy appearing, comfortable, no acute distress, well developed, awake, Physically active and average body habitus Nutritional Appearance: average body habitus and well nourished Orientation/consciousness: oriented to person, oriented to place, oriented to time and patient oriented x3 Limitations: no limitations HENMT: Head: normal to inspection, No palpable skull fracture present, normocephalic, atraumatic and abrasion Ears: hearing grossly normal bilaterally, external ears normal and TM's normal bilaterally Face/Nose/Sinus: Normal external nose present, Normal nares present and No nasal polyps present Eyes: General: appearance normal, both eyes and all related structures Alignment and Position: alignment normal Periorbital: periorbital findings normal Eyelids: eyelids normal Conjunctivae: conjunctivae normal Sclera: sclerae normal Cornea: corneas normal Pupils: Equal, round and reactive pupils present and Pupil accommodation reflex normal EOM: EOMs intact bilaterally Neck: Neck: normal visual inspection, full ROM, no lymphadenopathy, trachea midline and supple Thyroid: thyroid normal Carotids: normal carotid upstroke Lymphatic: no lymphadenopathy noted Chest: Chest palpation & inspection: normal inspection of the chest Resp: Effort & Inspection: normal respiratory effort Auscultation: clear to auscultation bilaterally Percussion: percussion normal Cardio: Palpation: normal PMI Rate: regular rate and tachycardic Rhythm: regular rhythm Heart sounds: S1 normal heart sound present and S2 normal heart sound present Peripheral pulses: Peripheral pulses 2+ throughout GI: Inspection: normal to inspection Auscultation: normal bowel sounds Rectal Exam: deferred : General: Yes no CVA tenderness Back/Spine/Pelvis: Back: no CVA tenderness Cervical Spine: cervical ROM normal Thoracic/Lumbar Spine: thoracic and lumbar spine normal to inspection Pelvis: no pain with anterior-posterior compression Skin: General skin exam: normal color Lesions: no lesions Rashes: no rashes Trauma: no lacerations or abrasions Wounds: no wounds Hair: normal Nails: normal Other: Patient has multiple tunneling to bilateral axillary area. No drainage noted at this time. Neuro: General: oriented to person, oriented to place, oriented to time and patient oriented x3 Cranial nerves: Yes Equal, round and reactive pupils present and Yes Normal hearing present Cognition (Neuro): normal cognition Speech: normal speech Gait exam (Neuro): Normal gait present Extrem: General: normal to inspection Right upper extremity: normal to inspection and shoulder/upper arm Left upper extremity: normal to inspection Psych: Appearance: grossly normal Mental Status: mental status grossly normal Speech and movement: Normal speech and movement present Objective Data Vital Signs Vital Signs: Vital Signs - 24 hr 08/24/25 14:00 08/24/25 15:31 08/24/25 20:00 Temperature 96.3 F L 99.1 F Pulse Rate 124 H 120 H Respiratory Rate 22 H Blood Pressure 124/72 Pulse Oximetry 94 Oxygen Delivery Room Air 08/24/25 20:40 08/25/25 05:00 Temperature 99.3 F 96.9 F L Pulse Rate 117 H 102 H Respiratory Rate 16 16 Blood Pressure 154/95 H 155/91 H Pulse Oximetry 99 98 Oxygen Delivery Intake/Output Intake/Output: Intake & Output 08/22/25 08/23/25 08/24/25 08/25/25 23:59 23:59 23:59 23:59 Intake Total 2389.9 1980 1622 Output Total 1000 Balance 2389.9 980 1622 Meds/Results Medications: Active Medications Generic Name Dose Route Start Last Admin Trade Name Freq PRN Reason Stop Dose Admin Dextrose 12.5 gm 08/23/25 16:44 Dextrose 50% 25 Gm/50 Ml Syringe IV PUSH PRN PRN Hypoglycemia Protocol Enoxaparin Sodium 40 mg 08/24/25 09:00 08/25/25 09:34 Enoxaparin 40 Mg/0.4 Ml Syringe SUB-Q Not Given DAILY JO ANN Dextrose 1,000 mls @ 100 mls/hr 08/23/25 16:44 Dextrose 5% 1,000 Ml IVPB PRN PRN Hypoglycemia Protocol Insulin Aspart 3 - 6 units 08/24/25 08:00 08/25/25 13:14 Insulin Aspart (*Bkc) 100 Units/Ml SUB-Q 3 units TIDWM JO ANN Administration Protocol Insulin Aspart 1 - 3 units 08/24/25 21:00 08/24/25 20:50 Insulin Aspart (*Bkc) 100 Units/Ml SUB-Q 2 units HS JO ANN Administration Protocol Insulin Aspart 5 units 08/24/25 12:00 08/25/25 13:14 Insulin Aspart (*Bkc) 100 Units/Ml 0.05 units/kg (5 units) 5 units SUB-Q Administration TIDWM [facility] Insulin Glargine 20 units 08/24/25 21:00 08/24/25 20:51 Insulin Glargine (*Bkc) 100 Units/Ml SUB-Q 20 units HS JO ANN Administration Pantoprazole Sodium 40 mg 08/25/25 09:00 08/25/25 09:23 Pantoprazole 40 Mg Tablet PO 40 mg QAM JO ANN Administration Radiology Results: ITS Impressions Chest/Abdomen/Pelvis CT 08/23/25 17:07 IMPRESSION: 1. No acute process in the chest, abdomen or pelvis. 2. Postsurgical changes detailed above, there is no rim-enhancing abscesses identified. 3. Incidental findings above Renal Ultrasound 08/24/25 08:24 IMPRESSION: 1. Benign cyst in right kidney. Labs Labs: Laboratory Results - last 24 hr 08/24/25 08/24/25 08/25/25 16:20 20:42 05:45 WBC 5.8 RBC 4.48 L Hgb 10.5 L Hct 36.5 L MCV 81.5 MCH 23.4 L MCHC 28.8 L RDW 17.3 H Plt Count 260 MPV 9.1 Sodium 129 L Potassium 3.4 Chloride 99 Carbon Dioxide 23 Anion Gap 7 BUN 8 L D Creatinine 0.54 L Estim Creat Clear Calc 183 Estimated GFR > 60 Glucose 271 H POC Capillary Glucose 290 H 316 H Calcium 7.5 L Magnesium 2.1 Total Bilirubin 0.4 AST 24 ALT 25 Alkaline Phosphatase 120 Total Protein 5.9 L Albumin 2.7 L 08/25/25 08/25/25 07:24 11:36 WBC RBC Hgb Hct MCV MCH MCHC RDW Plt Count MPV Sodium Potassium Chloride Carbon Dioxide Anion Gap BUN Creatinine Estim Creat Clear Calc Estimated GFR Glucose POC Capillary Glucose 275 H 229 H Calcium Magnesium Total Bilirubin AST ALT Alkaline Phosphatase Total Protein Albumin Quality VTE Prophylaxis VTE prophylaxis: pharmacologic ordered
[2025-08-25 14:00] VITALS: BP 143/72; PULSE 117; RESP 18; TEMP 36.9; O2SAT 99
[2025-08-25 20:50] VITALS: BP 123/70; PULSE 125; RESP 16; TEMP 35.9; O2SAT 100
[2025-08-25] MEDS: INSULIN GLARGINE (*BKC) 100 UNITS/ML 22 UNITS SUB-Q (21:12)
[2025-08-26 05:13] VITALS: BP 126/74; PULSE 101; RESP 17; TEMP 35.9; O2SAT 99
[2025-08-26 06:10] LABS: Hematocrit 35.6 % (42.0-52.0); Hemoglobin 10.3 g/dL (14.0-18.0); Mean Corpuscular HGB Conc 28.9 g/dl (32-36); Mean Corpuscular Hemoglobin 23.1 pg (26-34); Mean Corpuscular Volume 80.0 fl (80-100); Platelet Count Result 254 k/mm3 (150-375); Red Blood Count 4.45 M/mm3 (4.6-6.20); White Blood Count 5.5 K/mm3 (4.5-10.0)
[2025-08-26 06:34] LABS: Alanine Aminotransferase 23 U/L (6-50); Albumin Level 2.7 g/dL (3.5-5.1); Alkaline Phosphatase 124 U/L (38-126); Anion Gap 5 mmol/L (4-12); Aspartate Amino Transferase 27 U/L (17-59); Bilirubin,Total 0.4 mg/dL (0.2-1.3); Blood Urea Nitrogen 5 mg/dL (9-20); Calcium 7.7 mg/dL (8.4-10.2); Carbon Dioxide 28 mmol/L (22-30); Chloride 98 mmol/L (98-107); Estimated CRCL calculation 171 ml/min; Estimated Glomerular Filt Rate > 60; Glucose 259 mg/dL (65-110); Magnesium 2.2 mg/dL (1.6-2.3); Potassium 3.2 mmol/L (3.4-5.0); Sodium 131 mmol/L (137-145); Total Protein 5.9 g/dL (6.3-8.2)
[2025-08-26] MEDS: PANTOPRAZOLE 40 MG TABLET PO (08:47)
[2025-08-26] MEDS: INSULIN ASPART (*BKC) 100 UNITS/ML SUB-Q ×2 (08:47→08:49)
--- NOTE | 2025-08-26 09:04 | P.DS_ITS ---
DS: Admitting Diagnosis Discharge Date 08/26 Admitting Diagnosis hyperglycemia DS: Discharge Diagnosis Discharge Diagnosis (1) DKA (diabetic ketoacidosis): Qualifiers: Diabetes mellitus complication detail: without coma Diabetes mellitus type: other specified (including KATHERINE) Qualified Code(s): E13.10 - Other specified diabetes mellitus with ketoacidosis without coma Code(s): E11.10 - Type 2 diabetes mellitus with ketoacidosis without coma Status: Acute (2) Abnormal CT of the abdomen: Code(s): R93.5 - Abnormal findings on diagnostic imaging of other abdominal regions, including retroperitoneum Status: Acute (3) Hidradenitis suppurativa: Code(s): L73.2 - Hidradenitis suppurativa Status: Chronic DS: Summary Hospital Course Hospital Course: Patrick Conroy is a 44 year old male with past medical history of hidradenitis suppurativa who is on treatment with COSENTYX and also has been on intermittent steroids admitted for high blood sugars. Patient states her last 3 weeks he has been having excessive thirst and urinating multiple times a day. He suspected that he had diabetes and was trying to get an appointment. He went to his primary care doctor yesterday is found to be having blood glucose of 4 than 500 and was sent to ER. He denies any fever chest pain cough abdominal pain nausea vomiting diarrhea hematuria hematochezia dysuria. Intermittent constipation. Workup in the ER showed hemoglobin was slightly low at 12.6, MCV 79.4, MCH 23.4, MCHC 29.5, and RDW 18.1, lymphocyte percentage 11.0. Venous blood gas CO2 was 28.4 with a PO2 51.5 bicarb 16.5. Sodium was initially 129 and improved to 131. Potassium initially 4.1 now 3.4. Will send few days of replacement. His glucose initially was 551 His hemoglobin A1c was 12.8. Urine shows 3+ glucose with 3+ ketones. Yeast is present in the urine. Chest/abdomen/pelvis CT was read as a following. No acute process in the chest, abdomen or pelvis. 2. Postsurgical changes detailed above, there is no rim-enhancing abscesses identified. Patient was given IV fluid bolus and started on IV fluids infusion and along with insulin infusion admitted to ICU for further evaluation management. Overnight patient's anion gap closed and patient was transition to subcutaneous insulin. He was downgraded to [employer](TM) by [employer] floor. He was monitored overnight, labs, bs remained stable and was cleared for dischare this morning. He is to f/u with coding educator. General dietary instructions were provided for pt. We are holding his dexamethazone for now until he discusses it with prescribing provider. Diabetic regimen: lantus 22 units, started on metformin 500 mg daily x 1 week, then bid. He wants to try Mounjaro and i think it is great regimen, so he can titrate lantus down and eventually stop it once mounjaro dose is adequate to control sugar as with GLP1-GIP med like mounjaro, he can lose weight as well decreasing his metabolic complications. He is to have his hga1c and kidney function recheck around mid november- 3 months from now. Status at Discharge Functional status at discharge: independent ambulation Overall status at discharge: patient is progressing back to baseline Time Spent with Patient Time attestation: Total time spent providing and/or coordinating discharge services: Time spent: Greater than 30 minutes Exam Narrative: General: Pt is alert awake and in NAD Lungs/Chest: Trachea central Clear BS B/L, No crackles or wheezing. Cardiac: RRR. Normal S1 S2. No murmurs Circulation: Pedal pulses are intact and symmetrical. Abdomen: Normal bowel sounds.. Soft. NT. ND. Extremities: No clubbing, cyanosis or edema. Warm : Sigala in place Neurologic: Follows commands. Moves all 4 extremities PERRL Skin: No Rash, Patient has multiple tunneling to bilateral axillary area. No drainage noted at this time. Const: General: cooperative, healthy appearing, comfortable, no acute distress, well developed, awake, Physically active, average body habitus and well nourished Nutritional Appearance: average body habitus and well nourished Orientation/consciousness: oriented to person, oriented to place, oriented to time and patient oriented x3 Limitations: no limitations HENMT: Head: normal to inspection, No palpable skull fracture present, normocephalic, atraumatic and abrasion Ears: hearing grossly normal bilaterally, external ears normal and TM's normal bilaterally Face/Nose/Sinus: Normal external nose present, Normal nares present and No nasal polyps present Eyes: General: appearance normal, both eyes and all related structures Alignment and Position: alignment normal Periorbital: periorbital findings normal Eyelids: eyelids normal Conjunctivae: conjunctivae normal Sclera: sclerae normal Cornea: corneas normal Pupils: Equal, round and reactive pupils present and Pupil accommodation reflex normal EOM: EOMs intact bilaterally Neck: Neck: normal visual inspection, full ROM, no lymphadenopathy, trachea midline and supple Thyroid: thyroid normal Carotids: normal carotid upstroke Lymphatic: no lymphadenopathy noted Chest: Chest palpation & inspection: normal inspection of the chest Resp: Effort & Inspection: normal respiratory effort Auscultation: clear to auscultation bilaterally Percussion: percussion normal Cardio: Palpation: normal PMI Rate: regular rate and tachycardic Rhythm: regular rhythm Heart sounds: S1 normal heart sound present and S2 normal heart sound present Peripheral pulses: Peripheral pulses 2+ throughout GI: Inspection: normal to inspection Auscultation: normal bowel sounds Rectal Exam: deferred : General: Yes no CVA tenderness Back/Spine/Pelvis: Back: no CVA tenderness Cervical Spine: cervical ROM normal Thoracic/Lumbar Spine: thoracic and lumbar spine normal to inspection Pelvis: no pain with anterior-posterior compression Skin: General skin exam: normal color Lesions: no lesions Rashes: no rashes Trauma: no lacerations or abrasions Wounds: no wounds Hair: normal Nails: normal Other: Patient has multiple tunneling to bilateral axillary area. No drainage noted at this time. Neuro: General: oriented to person, oriented to place, oriented to time and patient oriented x3 Cranial nerves: Yes Equal, round and reactive pupils present and Yes Normal hearing present Cognition (Neuro): normal cognition Speech: normal speech Gait exam (Neuro): Normal gait present Extrem: General: normal to inspection Right upper extremity: normal to inspection and shoulder/upper arm Left upper extremity: normal to inspection Psych: Appearance: grossly normal Mental Status: mental status grossly normal Speech and movement: Normal speech and movement present DS: Data Data Completed and Pending Labs on day of discharge: Labs from last 24 hours 08/26/25 08/26/25 08/25/25 07:44 05:52 20:49 WBC 5.5 RBC 4.45 L Hgb 10.3 L Hct 35.6 L MCV 80.0 MCH 23.1 L MCHC 28.9 L RDW 17.2 H Plt Count 254 MPV 9.2 Sodium 131 L Potassium 3.2 L Chloride 98 Carbon Dioxide 28 Anion Gap 5 BUN 5 L Creatinine 0.58 L Estim Creat Clear Calc 171 Estimated GFR > 60 Glucose 259 H POC Capillary Glucose 253 H 282 H Calcium 7.7 L Magnesium 2.2 Total Bilirubin 0.4 AST 27 ALT 23 Alkaline Phosphatase 124 Total Protein 5.9 L Albumin 2.7 L 08/25/25 08/25/25 17:07 11:36 WBC RBC Hgb Hct MCV MCH MCHC RDW Plt Count MPV Sodium Potassium Chloride Carbon Dioxide Anion Gap BUN Creatinine Estim Creat Clear Calc Estimated GFR Glucose POC Capillary Glucose 223 H 229 H Calcium Magnesium Total Bilirubin AST ALT Alkaline Phosphatase Total Protein Albumin Discharge Plan Discharge Attending physician on discharge: Man Aguilar Consulting providers: Dean Solis Discharging Clinician: Sailaja Carlos Patient Disposition: Home Activity: march shower Diet: diabetic Discharge Instructions: Diabetes Care Instructions Your Medications Metformin- rx sent * Week 1: Take 500 mg by mouth once daily with food * After Week 1: Take 500 mg by mouth twice daily with meals (morning and evening) Lantus Insulin- rx sent * Take 22 units by injection every night at bedtime * Use the same time each night Blood Sugar Monitoring * Check your blood sugar every morning before eating (fasting) * Write down your results in a logbook or notebook * Goal range: 80-130 mg/dL * Bring your records to all doctor appointments Diabetic Meal Planning Foods to EAT MORE: * Non-starchy vegetables (broccoli, spinach, peppers, tomatoes, green beans) * Lean proteins (chicken, fish, turkey, eggs). avoid fatty meats, deep fried foods * Whole grains (brown rice, whole wheat bread, oatmeal) * Healthy fats (nuts, avocado, olive oil) * Fresh fruits (berries, apples, oranges) - in moderation Foods to LIMIT or AVOID: * Sugary drinks (soda, sweet tea, juice) * White bread, white rice, regular pasta * Fried foods * Sweets and desserts * Processed snacks and chips Meal Planning Tips: * Eat 3 regular meals at the same times each day- remember keep the meal balanced-lean protein, healthy fats and whole grains * Fill half your plate with vegetables * Choose lean protein (size of your palm) * Limit carbohydrates to ? of your plate * Drink plenty of water * Watch portion sizes Important Reminders * Never skip meals, especially if you've taken your insulin * Call your doctor if blood sugars are consistently above 180 or below 70 * Keep a fast-acting sugar source with you (glucose tablets, juice) in case of low blood sugar Call your doctor's office to egt a f/u layne. You will need your hgA1C rechecked as well as kidney function about 3 months after discharge- so around mid november. Please discuss dexamethasone use with prescribing provider prior to restarting. Patient Instructions: Antibiotic Form, How to Stop Smoking (DC), Diabetic Ketoacidosis (GEN), Basic Carbohydrate Counting (DC) Patient Language: Turkmen Stand Alone Forms: General Discharge Information Follow-up/Referrals: Dinora Zheng APRN [Primary Care Provider, Internal Medicine] - 2 Weeks Discharge Medications: New potassium chloride 20 mEq Packet 40 meq PO DAILY Qty: 5 0RF insulin degludec 100 unit/mL (3 mL) insulin pen 22 unit subcut HS Qty: 15 0RF (DME) blood-glucose meter [OneTouch Verio Flex meter] Misc Qty: 1 0RF Rx Instructions: May substitute to in-stock meter and/or covered by insurance. Use As Directed (DME) OneTouch Verio test strips Strip Qty: 1 0RF Rx Instructions: May substitute to in-stock and/or covered by insurance strips. Use As Directed (DME) pen needle, diabetic 32 gauge x 5/32 Needle Qty: 1 0RF Rx Instructions: As Directed (DME) lancets [OneTouch Delica Plus Lancet] 30 gauge misc Qty: 1 0RF Rx Instructions: May substitute to in-stock and/or covered by insurance lancets. Use As Directed metformin 500 mg tablet 500 mg PO BID Qty: 90 0RF Rx Instructions: please take 500 mg daily for 1 week, then take 500 mg twice a day, am and pm insulin degludec 100 unit/mL (3 mL) insulin pen 22 unit subcut HS Qty: 15 0RF Continued secukinumab [Cosentyx (2 Syringes)] See Rx Instructions subcut .COMPLEX Patient Comments: Due 08/31/25 Rx Instructions: 300 mg subcutaneously monthly; ferrous sulfate 325 mg (65 mg iron) tablet 325 mg PO BID Qty: 180 1RF ascorbic acid (vitamin C) [Vitamin C] 500 mg tablet 500 mg PO DAILY Qty: 30 0RF Rx Instructions: LAST FILL FROM THIS OFFICE. pantoprazole 40 mg tablet,delayed release (DR/EC) 40 mg PO QAM Qty: 30 0RF Patient Comments: Just got filled today Held dexamethasone 4 mg tablet 4 mg PO WEEKLY Hold Instructions: Resume on 09/11/25. please discuss this medication with prescribing provider Patient Comments: Wednesday Date of admission: 08/24/25 11:39 Primary Care Provider: Dinora Zheng Admitting Provider: Sayda Aldridge Attending physician on admission: Sayda Aldridge Condition: Critical Quality VTE Prophylaxis VTE prophylaxis: pharmacologic ordered
--- NOTE | 2025-08-31 15:37 | PCCDE ---
08/31/25: DM educator courtesy call placed. Out going voice mail message for phone number appears to be a business. Generic message including my phone numer left.
== END 2025-08-26 11:35 | disposition home or self-care (01) | DRG 638 ==
LOC: ANHED 19:21 → ANHICU 19:58 → ANH3MEDSUR 08-24 09:21
PROVIDERS: Internal Medicine; Physician Assistant; Admitting Provider Internal Medicine; Emergency Provider Preventive Medicine Aerospace Medicine; Visit Provider Nurse Practitioner
DX: E09.10 Drug or chemical induced diabetes mellitus with ketoacidosis without coma (principal); D59.0 Drug-induced autoimmune hemolytic anemia; T38.0X5A Adverse effect of glucocorticoids and synthetic analogues, initial encounter; L73.2 Hidradenitis suppurativa; J45.909 Unspecified asthma, uncomplicated; F17.210 Nicotine dependence, cigarettes, uncomplicated; N20.0 Calculus of kidney
CPT/HCPCS: 36415; 71260; 74177; 76770; 80048; 80053; 81001; 82803; 82948; 83036; 83735; 84100; 85025; 85027; 87641; 93005; 96361; 96365; 96375; 99285; A9270; G0378; J0613; J1650; J1815; J3480; J7030; Q9967

== ENCOUNTER 2025-09-25 10:22 | Emergency (ER) | payer OTHER, SELFPAY ==
--- OUTSIDE RECORDS SUMMARY | 2013-11-17 02:30 | XMS_ITS | Continuity of Care Document ---
Author Organization [facility] Address [address] [place] [address] [address] [place] [address] Phone Care Team Providers Care Containers Sales Representative Name Role Phone Marjorie VALADEZ, Syed Unavailable Unavaila ble Allergies, Adverse Reactions, Alerts Substance Reaction Status Criticality No Known allergies Procedures Procedure Date OFFICE/OUTPATIENT VISIT, [facility] CORNEAL TOPOGRAPHY Advance Directives Directive Yes / No Effective Date File Name No Information Encounters Encounter Description Practice Location Reason(s) For Visit Diagnoses Date Provider Providers Copied on Encounter OFFICE/OUTPA TIENT VISIT, [facility], [address], [place], [place], [address], tel:[phone] Oph Consult [facility] Office Central opacity of corneaEndothel ial corneal dystrophyRegul ar astigmatismMyo samir 4 Marjorie Lynch. [address] [facility], [address], [place], [place], [address], [place]. tel:[phone] Referring Provider: Syed zuleta, [address] [facility] [address], [place], [address] . tel:[phone] Family History Family Member Type Diagnosis Age [...]
--- OUTSIDE RECORDS SUMMARY | 2013-11-17 02:30 | XMS_ITS | Continuity of Care Document ---
Author Organization [facility] Address [address] [place] [address] [address] [place] [address] Phone Care Team Providers Care Outboard Motor Inspector Name Role Phone Marjorie VALADEZ, Syed Unavailable Unavaila ble Allergies, Adverse Reactions, Alerts Substance Reaction Status Criticality No Known allergies Procedures Procedure Date OFFICE/OUTPATIENT VISIT, [facility] CORNEAL TOPOGRAPHY Advance Directives Directive Yes / No Effective Date File Name No Information Encounters Encounter Description Practice Location Reason(s) For Visit Diagnoses Date Provider Providers Copied on Encounter OFFICE/OUTPA TIENT VISIT, [facility], [address], [place], [place], [address], tel:[phone] Oph Consult [facility] Office Central opacity of corneaEndothel ial corneal dystrophyRegul ar astigmatismMyo samir 4 Marjorie Lynch. [address] [facility], [address], [place], [place], [address], [place]. tel:[phone] Referring Provider: Syed zuleta, [address], [place], [address] . tel:[phone] Family History Family Member Type Diagnosis Age At Onset No Information Payers Payer name Insurance type Covered democrat ID Authoriza tion(s) No Information Social History [...]
--- OUTSIDE RECORDS SUMMARY | 2013-11-17 02:30 | XMS_ITS | Continuity of Care Document ---
Author Organization [facility] Address [address] [place] [address] [address] [place] [address] Phone Care Team Providers Care Combination Welder Apprentice Name Role Phone Marjorie VALADEZ, Syed Unavailable Unavaila ble Allergies, Adverse Reactions, Alerts Substance Reaction Status Criticality No Known allergies Procedures Procedure Date OFFICE/OUTPATIENT VISIT, [facility] CORNEAL TOPOGRAPHY Advance Directives Directive Yes / No Effective Date File Name No Information Encounters Encounter Description Practice Location Reason(s) For Visit Diagnoses Date Provider Providers Copied on Encounter OFFICE/OUTPA TIENT VISIT, [facility], [address], [place], [place], [address], tel:[phone] Oph Consult [facility] Office Central opacity of corneaEndothel ial corneal dystrophyRegul ar astigmatismMyo samir 4 Marjorie Lynch. [address] [facility], [address], [place], [place], [address], [place]. tel:[phone] Referring Provider: Syed zuleta, [address] [facility] [address], [place], [address] . tel:[phone] Family History Family Member Type Diagnosis Age At Onset No Information Payers Payer name Insurance type Covered libertarian ID Authoriza tion(s) No Information Social History [...]
--- OUTSIDE RECORDS SUMMARY | 2013-11-17 02:30 | XMS_ITS | Continuity of Care Document ---
Author Organization [facility] Address [address] [place] [address] [address] [place] [address] Phone Care Team Providers Care Insurance Healthcare Consultant Name Role Phone Marjorie VALADEZ, Syed Unavailable Unavaila ble Allergies, Adverse Reactions, Alerts Substance Reaction Status Criticality No Known allergies Procedures Procedure Date OFFICE/OUTPATIENT VISIT, [facility] CORNEAL TOPOGRAPHY Advance Directives Directive Yes / No Effective Date File Name No Information Encounters Encounter Description Practice Location Reason(s) For Visit Diagnoses Date Provider Providers Copied on Encounter OFFICE/OUTPA TIENT VISIT, [facility], [address], [place], [place], [address], tel:[phone] Oph Consult [facility] Office Central opacity of corneaEndothel ial corneal dystrophyRegul ar astigmatismMyo samir 4 Marjorie Lynch. [address] [facility], [address], [place], [place], [address], [place]. tel:[phone] Referring Provider: Syed zuleta, [address] [facility] [address], [place], [address] . tel:[phone] Family History Family Member Type Diagnosis Age [...]
--- OUTSIDE RECORDS SUMMARY | 2013-11-17 02:30 | XMS_ITS | Continuity of Care Document ---
Author [facility] Address [address] [place] [address] [address] [place] [address] Phone Care Team Providers Care Parole Officer Name Role Phone Marjorie VALADEZ, Syed Unavailable Unavaila ble Allergies, Adverse Reactions, Alerts Substance Reaction Status Criticality No Known allergies Procedures Procedure Date OFFICE/OUTPATIENT VISIT, [facility] CORNEAL TOPOGRAPHY Advance Directives Directive Yes / No Effective Date File Name No Information Encounters Encounter Description Practice Location Reason(s) For Visit Diagnoses Date Provider Providers Copied on Encounter OFFICE/OUTPA TIENT VISIT, [facility], [address], [place], [place], [address], tel:[phone] Oph Consult [facility] Office Central opacity of corneaEndothel ial corneal dystrophyRegul ar astigmatismMyo samir 4 Marjorie Lynch. [address], [address], [place], [place], [address], [place]. tel:[phone] Referring Provider: Syed zuleta, [address], [place], [address] . tel:[phone] Family History Family Member Type Diagnosis Age At Onset No Information Payers Payer name Insurance type Covered alliance party ID Authoriza tion(s) No Information Social [...]
--- OUTSIDE RECORDS SUMMARY | 2013-11-17 02:30 | XMS_ITS | Continuity of Care Document ---
Author Organization [facility] Address [address] [place] [address] [address] [place] [address] Phone Care Team Providers Care Ict Developer Name Role Phone Marjorie VALADEZ, Syed Unavailable Unavaila ble Allergies, Adverse Reactions, Alerts Substance Reaction Status Criticality No Known allergies Procedures Procedure Date OFFICE/OUTPATIENT VISIT, [facility] CORNEAL TOPOGRAPHY Advance Directives Directive Yes / No Effective Date File Name No Information Encounters Encounter Description Practice Location Reason(s) For Visit Diagnoses Date Provider Providers Copied on Encounter OFFICE/OUTPA TIENT VISIT, [facility], [address], [place], [place], [address], tel:[phone] Oph Consult [facility] Office Central opacity of corneaEndothel ial corneal dystrophyRegul ar astigmatismMyo samir 4 Marjorie Lynch. [address] [facility], [address], [place], [place], [address], [place]. tel:[phone] Referring Provider: Syed zuleta, [address] [facility] [address], [place], [address] . tel:[phone] Family History Family Member Type Diagnosis Age [...]
--- OUTSIDE RECORDS SUMMARY | 2013-11-17 02:30 | XMS_ITS | Continuity of Care Document ---
Author Organization [facility] Address [address] [place] [address] [address] [place] [address] Phone Care Team Providers Care Electronics Technician Name Role Phone Marjorie VALADEZ, Syed Unavailable Unavaila ble Allergies, Adverse Reactions, Alerts Substance Reaction Status Criticality No Known allergies Procedures Procedure Date OFFICE/OUTPATIENT VISIT, [facility] CORNEAL TOPOGRAPHY Advance Directives Directive Yes / No Effective Date File Name No Information Encounters Encounter Description Practice Location Reason(s) For Visit Diagnoses Date Provider Providers Copied on Encounter OFFICE/OUTPA TIENT VISIT, [facility], [address], [place], [place], [address], tel:[phone] Oph Consult [facility] Office Central opacity of corneaEndothel ial corneal dystrophyRegul ar astigmatismMyo samir 4 Marjorie Lynch. [address], [address], [place], [place], [address], [place]. tel:[phone] Referring Provider: Syed zuleta, [address], [place], [address] . tel:[phone] Family History Family Member Type Diagnosis Age [...]
--- OUTSIDE RECORDS SUMMARY | 2013-11-17 02:30 | XMS_ITS | Continuity of Care Document ---
Author Organization [facility] Address [address] [place] [address] [address] [place] [address] Phone Care Team Providers Care Nurse Staff Community [facility] Name Role Phone Marjorie VALADEZ, Syed Unavailable Unavaila ble Allergies, Adverse Reactions, Alerts Substance Reaction Status Criticality No Known allergies Procedures Procedure Date OFFICE/OUTPATIENT VISIT, [facility] CORNEAL TOPOGRAPHY Advance Directives Directive Yes / No Effective Date File Name No Information Encounters Encounter Description Practice Location Reason(s) For Visit Diagnoses Date Provider Providers Copied on Encounter OFFICE/OUTPA TIENT VISIT, [facility], [address], [place], [place], [address], tel:[phone] [facility] Office Central opacity of corneaEndothel ial corneal dystrophyRegul ar astigmatismMyo samir 4 Marjorie Lynch. [address] [facility], [address], [place], [place], [address], [place]. tel:[phone] Referring Provider: Syed zuleta, [address] [facility] [address], [place], [address] . tel:[phone] Family History Family Member Type Diagnosis Age [...]
--- OUTSIDE RECORDS SUMMARY | 2013-11-17 02:30 | XMS_ITS | Continuity of Care Document ---
Author Organization [facility] Address [address] [place] [address] [address] [place] [address] Phone Care Team Providers Care Broadcast Operations Technician Name Role Phone Marjorie VALADEZ, Syed Unavailable Unavaila ble Allergies, Adverse Reactions, Alerts Substance Reaction Status Criticality No Known allergies Procedures Procedure Date OFFICE/OUTPATIENT VISIT, [facility] CORNEAL TOPOGRAPHY Advance Directives Directive Yes / No Effective Date File Name No Information Encounters Encounter Description Practice Location Reason(s) For Visit Diagnoses Date Provider Providers Copied on Encounter OFFICE/OUTPA TIENT VISIT, [facility], [address], [place], [place], [address], tel:[phone] Oph Consult [facility] Office Central opacity of corneaEndothel ial corneal dystrophyRegul ar astigmatismMyo samir 4 Marjorie Lynch. [address] [facility], [address], [place], [place], [address], [place]. tel:[phone] Referring Provider: Syed zuleta, [address] [facility] [address], [place], [address] . tel:[phone] Family History Family Member Type Diagnosis Age At Onset No Information Payers Payer name Insurance type Covered green party ID Authoriza tion(s) No Information Social [...]
--- OUTSIDE RECORDS SUMMARY | 2013-11-17 02:30 | XMS_ITS | Continuity of Care Document ---
Author [facility] Address [address] [place] [address] [address] [place] [address] Phone Care Team Providers Care Gridcap Machine Operator Name Role Phone Marjorie VALADEZ, Syed Unavailable Unavaila ble Allergies, Adverse Reactions, Alerts Substance Reaction Status Criticality No Known allergies Procedures Procedure Date OFFICE/OUTPATIENT VISIT, [facility] CORNEAL TOPOGRAPHY Advance Directives Directive Yes / No Effective Date File Name No Information Encounters Encounter Description Practice Location Reason(s) For Visit Diagnoses Date Provider Providers Copied on Encounter OFFICE/OUTPA TIENT VISIT, [facility], [address], [place], [place], [address], tel:[phone] Oph Consult [facility] Office Central opacity of corneaEndothel ial corneal dystrophyRegul ar astigmatismMyo samir 4 Marjorie Lynch. [address] [facility], [address], [place], [place], [address], [place]. tel:[phone] Referring Provider: Syed zuleta, [address] [facility] [address], [place], [address] . tel:[phone] Family History Family Member Type Diagnosis Age [...]
--- OUTSIDE RECORDS SUMMARY | 2013-11-17 02:30 | XMS_ITS | Continuity of Care Document ---
Author Organization [facility] Address [address] [place] [address] [address] [place] [address] Phone Care Team Providers Care Release Of Information Specialist Name Role Phone Marjorie VALADEZ, Syed Unavailable Unavaila ble Allergies, Adverse Reactions, Alerts Substance Reaction Status Criticality No Known allergies Procedures Procedure Date OFFICE/OUTPATIENT VISIT, [facility] CORNEAL TOPOGRAPHY Advance Directives Directive Yes / No Effective Date File Name No Information Encounters Encounter Description Practice Location Reason(s) For Visit Diagnoses Date Provider Providers Copied on Encounter OFFICE/OUTPA TIENT VISIT, [facility], [address], [place], [place], [address], tel:[phone] Oph Consult [facility] Office Central opacity of corneaEndothel ial corneal dystrophyRegul ar astigmatismMyo samir 4 Marjorie Lynch. [address] [facility], [address], [place], [place], [address], [place]. tel:[phone] Referring Provider: Syed zuleta, [address] [facility] [address], [place], [address] . tel:[phone] Family History Family Member Type Diagnosis Age [...]
--- OUTSIDE RECORDS SUMMARY | 2013-11-17 02:30 | XMS_ITS | Continuity of Care Document ---
Author Organization [facility] Address [address] [place] [address] [address] [place] [address] Phone Care Team Providers Care Scientific Artist Name Role Phone Marjorie VALADEZ, Syed Unavailable Unavaila ble Allergies, Adverse Reactions, Alerts Substance Reaction Status Criticality No Known allergies Procedures Procedure Date OFFICE/OUTPATIENT VISIT, [facility] CORNEAL TOPOGRAPHY Advance Directives Directive Yes / No Effective Date File Name No Information Encounters Encounter Description Practice Location Reason(s) For Visit Diagnoses Date Provider Providers Copied on Encounter OFFICE/OUTPA TIENT VISIT, [facility], [address], [place], [place], [address], tel:[phone] [facility] Office Central opacity of corneaEndothel ial corneal dystrophyRegul ar astigmatismMyo samir 4 Marjorie Lynch. [address] [facility] [facility], [address], [place], [place], [address], [place]. tel:[phone] Referring Provider: Syed zuleta, [address] [facility] [facility] [address], [place], [address] . tel:[phone] Family History Family Member Type Diagnosis Age [...]
--- OUTSIDE RECORDS SUMMARY | 2013-11-17 02:30 | XMS_ITS | Continuity of Care Document ---
Author Organization [facility] Address [address] [place] [address] [address] [place] [address] Phone Care Team Providers Care Performance Test Architect Name Role Phone Marjorie VALADEZ, Syed Unavailable Unavaila ble Allergies, Adverse Reactions, Alerts Substance Reaction Status Criticality No Known allergies Procedures Procedure Date OFFICE/OUTPATIENT VISIT, [facility] CORNEAL TOPOGRAPHY Advance Directives Directive Yes / No Effective Date File Name No Information Encounters Encounter Description Practice Location Reason(s) For Visit Diagnoses Date Provider Providers Copied on Encounter OFFICE/OUTPA TIENT VISIT, [facility], [address], [place], [place], [address], tel:[phone] Oph Consult [facility] Office Central opacity of corneaEndothel ial corneal dystrophyRegul ar astigmatismMyo samir 4 Marjorie Lynch. [address] [facility], [address], [place], [place], [address], [place]. tel:[phone] Referring Provider: Syed zuleta, [address] [facility] [address], [place], [address] . tel:[phone] Family History Family Member Type Diagnosis Age [...]
--- NOTE | ~2025-09-25 | XR_ITS ---
EXAMINATION: XR chest 2V, 09/25/2025 15:00 PRESSURE WASHER HISTORY: WBC, SOB COMPARISON: No comparisons available. Technique: 2 views obtained. Findings: The lungs are clear, no effusion. No pneumothorax. Heart is normal size. Mediastinal and hilar contours are within normal limits. Bony thorax no acute abnormality. Impression: No acute cardiopulmonary abnormality. Reviewed, dictated and finalized at location P. SURE WASHER Impression: No acute cardiopulmonary abnormality.
[2025-09-25 10:33] VITALS: BP 95/64; PULSE 150; RESP 22; TEMP 36.8; O2SAT 96
[2025-09-25 10:58] LABS: Hematocrit 42.6 % (42.0-52.0); Hemoglobin 12.6 g/dL (14.0-18.0); Immature Granulocyte Percent A 0.6 % (0-0.5); Lymphocytes Absolute Auto 1.44 K/mm3 (0.9-3.2); Mean Corpuscular HGB Conc 29.6 g/dl (32-36); Mean Corpuscular Hemoglobin 22.1 pg (26-34); Mean Corpuscular Volume 74.9 fl (80-100); Nucleated Red Blood Cells Absolute Auto 0.000 K/mm3 (0.0-0.012); Nucleated Red Blood Cells Perc 0.0 % (0.0-0.2); Platelet Count Result 622 k/mm3 (150-375); Red Blood Count 5.69 M/mm3 (4.6-6.20); White Blood Count 16.0 K/mm3 (4.5-10.0)
[2025-09-25 11:13] LABS: Alanine Aminotransferase 25 U/L (6-50); Albumin Level 3.4 g/dL (3.5-5.1); Alkaline Phosphatase 161 U/L (38-126); Anion Gap 14 mmol/L (4-12); Aspartate Amino Transferase 41 U/L (17-59); Bilirubin,Total 0.7 mg/dL (0.2-1.3); Blood Urea Nitrogen 5 mg/dL (9-20); Calcium 8.4 mg/dL (8.4-10.2); Carbon Dioxide 23 mmol/L (22-30); Chloride 92 mmol/L (98-107); Estimated CRCL calculation 97 ml/min; Estimated Glomerular Filt Rate > 60; Glucose 179 mg/dL (65-110); Magnesium 1.9 mg/dL (1.6-2.3); Potassium 3.0 mmol/L (3.4-5.0); Sodium 129 mmol/L (137-145); Total Protein 8.1 g/dL (6.3-8.2)
[2025-09-25] MEDS: LACTATED RINGERS 1,000 ML 999 ML IV CONT ×2 (11:23→14:24)
[2025-09-25] MEDS: POTASSIUM CHLORIDE 20 MEQ PACKET (FOR LIQUID) 40 MEQ PO (11:24)
[2025-09-25 11:28] LABS: Microcytosis 1+ (NORMAL); Schistocytes None Seen
[2025-09-25] MEDS: METOCLOPRAMIDE HCL INJ 10 MG/2 ML VIAL IV PUSH (11:42)
[2025-09-25 12:00] VITALS: BP 116/68; PULSE 130; RESP 18; O2SAT 99
[2025-09-25] MEDS: KCL 20 MEQ/SW 100 ML 100 ML 50 MEQ IVPB (12:09)
[2025-09-25] MEDS: SODIUM CHLORIDE 0.9% IV 1,000 ML 150 ML (12:09)
--- NOTE | 2025-09-25 13:19 | ED.GENADULT ---
HPI - General Adult General Chief complaint: Recheck/Abnormal Lab/Rx Stated complaint: new diabetic, medication issues Time Seen by Provider: 09/25/25 11:00 History of Present Illness HPI narrative: 44 year old male present to the emergency department for evaluation for nausea and vomiting that is been ongoing since Wednesday. Patient was diagnosed with diabetes in August and has had multiple GI issues related to the metformin. Patient states that since Wednesday he has had worsening nausea and vomiting. Upon arrival to the emergency department patient was tachycardic into the 140s. Patient states his heart rate is typically in the 120s. Patient reports this is being worked up by his primary care physician as outpatient. Related Data Home Medications ?Medication ?Instructions ?Recorded ?Confirmed ?Last Taken ?Type secukinumab See Rx Instructions subcut .COMPLEX 04/27/24 09/25/25 Unknown History Allergies Allergy/AdvReac Type Severity Reaction Status Date / Time No Known Allergies Allergy Verified 09/25/25 08:51 Review of Systems Review of Systems: All systems reviewed & are unremarkable except as noted in HPI and below PMFSH Past Medical History Medical History Hidradenitis suppurativa Migraine Asthma Surgical History Surgical History No history of previous surgery No pertinent past surgical history Family History Family History Mother Diabetes mellitus Hypertension Heart attack Cerebrovascular accident Father Alcohol abuse Family history of congestive heart failure Family history of chronic obstructive pulmonary disease Asthma Social History Social History Social History: Caffeine- 1 soda's daily. The patient lives with his and 12-year-old son. He works as a commercial lines manager at [employer] Surrogate medical decision maker: Anastasiya Conroy, spouse. Code status: Full code. Smoking packs per day: 0.01 Smoking cigarettes per day: 0.2 Years smoked: 20 Smoking pack-years: 0.20 Smoking status: Current some day smoker Tobacco type: cigarettes Alcohol intake: former Substance use: current Substance use type: marijuana Other substance usage details: edibles Last use: 08/22/25 Lack of Transportation: No Lack of Food: Never True Current Housing: I Have Housing Concerned About Future Housing: No Difficulty Paying Gas/Electric Bills: No Difficulty Paying for Meds: No Currently Unemployed: No Education: High School Diploma/GED Difficulty w/ Childcare or Family Care: No Living arrangements: with family Occupation/Education: occupation Spiritual care concerns: No Agree to blood products: Yes Exam Narrative: APPEARANCE: Well appearing, no pain, no distress, well-nourished. HEAD: normocephalic, atraumatic. EYES: PERRLA/EOMI, conjunctivae clear. NOSE: Normal no drainage EARS:TMS clear with good light reflex. THROAT: Pharynx clear, no exudate. NECK: Supple. No adenopathy, no masses. RESPIRATORY: Airway patent, respirations nonlabored. Clear to auscultation bilaterally, no rales, rhonchi, wheezing. CARDIOVASCULAR: Regular rate and rhythm without murmurs rubs or gallops. ABDOMINAL: Soft, nontender, nondistended, normal bowel sounds MUSCULOSKELETAL: Moves all extremities. Strength/ROM intact, No edema, No calf tenderness. NEURO: Alert. Cranial nerves II through XII intact. Good gait. Good coordination SKIN: Warm, dry. Normal Color Course Vital Signs Vital signs: Vital Signs Temperature 98.3 F 09/25/25 10:33 Pulse Rate 150 H 09/25/25 10:33 Respiratory Rate 22 H 09/25/25 10:33 Blood Pressure 95/64 L 09/25/25 10:33 Pulse Oximetry 96 09/25/25 10:33 Oxygen Delivery Room Air 09/25/25 10:33 Temperature 98.3 F 09/25/25 10:33 Pulse Rate 118 H 09/25/25 15:57 Respiratory Rate 18 09/25/25 15:57 Blood Pressure 121/70 09/25/25 15:57 Pulse Oximetry 98 09/25/25 15:57 Oxygen Delivery Room Air 09/25/25 10:33 Medical Decision Making [facility] Narrative Medical decision making narrative: 44-year-old male presenting to the emergency department for evaluation for tachycardia at from persistent nausea and vomiting. Patient is currently afebrile but does have a leukocytosis of 16 9 hemoglobin of 12.6. Patient has a sodium 129 a potassium of 3.0 and an anion gap of 14. Patient was treated with a L of normal saline a L of lactated Ringer's. Chest x-ray shows no acute cardiopulmonary abnormality. UA was negative for infection. Patient does have an elevated leukocytosis. Patient states he has no associated abdominal pain. Patient states he is always tachycardic into the 120s and is being worked up by his primary care physician for this. Patient was offered admission for further workup for the tachycardia plan patient prefers to be discharged home. Patient will be provided Zofran and Reglan for nausea control and encouraged of close follow-up with primary care physician. All questions concerns were addressed. Patient was well-appearing at time of discharge. Differential Diagnosis Differential Diagnosis: Dehydration, medication reaction, UTI, COVID, RSV, influenza, pneumonia Vital Signs Vital Signs: Vital Signs Temperature 98.3 F 09/25/25 10:33 Pulse Rate 150 H 09/25/25 10:33 Respiratory Rate 22 H 09/25/25 10:33 Blood Pressure 95/64 L 09/25/25 10:33 Pulse Oximetry 96 09/25/25 10:33 Oxygen Delivery Room Air 09/25/25 10:33 Temperature 98.3 F 09/25/25 10:33 Pulse Rate 118 H 09/25/25 15:57 Respiratory Rate 18 09/25/25 15:57 Blood Pressure 121/70 09/25/25 15:57 Pulse Oximetry 98 09/25/25 15:57 Oxygen Delivery Room Air 09/25/25 10:33 Lab Data Lab results reviewed: Yes I reviewed the patient's lab results. 09/25/25 10:48 09/25/25 14:19 Labs: Lab Results 09/25/25 09/25/25 09/25/25 Range/Units 10:43 10:48 14:19 WBC 16.0 H (4.5-10.0) K/mm3 RBC 5.69 (4.6-6.20) M/mm3 Hgb 12.6 L (14.0-18.0) g/dL Hct 42.6 (42.0-52.0) % MCV 74.9 L (80-100) fl MCH 22.1 L (26-34) pg MCHC 29.6 L (32-36) g/dl RDW 17.6 H (11.5-14.5) % Plt Count 622 H D (150-375) k/mm3 MPV 8.2 (7.4-10.4) fl Immature Gran % (Auto) 0.6 H (0-0.5) % Neut % (Auto) 78.1 H (45.5-73.1) % Lymph % (Auto) 9.0 L (18.3-44.2) % [place] % (Auto) 11.6 H (2.6-8.5) % Eos % (Auto) 0.1 (0-4.4) % Baso % (Auto) 0.6 (0.2-1.2) % Lymph # (Auto) 1.44 (0.9-3.2) K/mm3 [place] # (Auto) 1.9 H (0.1-0.6) K/mm3 Eos # (Auto) 0.0 (0-0.3) K/mm3 Baso # (Auto) 0.1 (0.0-0.1) K/mm3 Abs Immat Gran (auto) 0.10 H (0.00-0.031) K/mm3 Absolute Neuts (auto) 12.5 H (1.3-6.7) K/mm3 Absolute Nucleated RBC 0.000 (0.0-0.012) K/mm3 Band Neutrophils % Not Reportable Nucleated RBC % 0.0 (0.0-0.2) % Platelet Estimate Increased (Adequate) Microcytosis 1+ (NORMAL) Schistocytes None seen Sodium 129 L 129 L (137-145) mmol/L Potassium 3.0 L 3.4 (3.4-5.0) mmol/L Chloride 92 L 96 L (98-107) mmol/L Carbon Dioxide 23 22 (22-30) mmol/L Anion Gap 14 H 11 (4-12) mmol/L BUN 5 L 5 L (9-20) mg/dL Creatinine 1.00 0.97 (0.7-1.3) mg/dL Estim Creat Clear Calc 97 100 ml/min Estimated GFR > 60 > 60 (59 - ) Glucose 179 H 122 H (65-110) mg/dL POC Capillary Glucose 183 H (65-105) mg/dl Calcium 8.4 8.1 L (8.4-10.2) mg/dL Phosphorus 3.2 (2.5-4.5) mg/dL Magnesium 1.9 (1.6-2.3) mg/dL Total Bilirubin 0.7 (0.2-1.3) mg/dL AST 41 (17-59) U/L ALT 25 (6-50) U/L Alkaline Phosphatase 161 H (38-126) U/L Total Protein 8.1 (6.3-8.2) g/dL Albumin 3.4 L (3.5-5.1) g/dL Beta-Hydroxybutyrate/Acetoacetate 1.63 H (0.02-0.27) mmol/L Urine Color Yellow (Yellow) Urine Appearance Clear (Clear) Urine pH 7.5 (5.0-9.0) Ur Specific [place] 1.006 (1.001-1.035) Urine Protein 1+ H (Negative) mg/dL Urine Glucose (UA) Negative (Negative) mg/dL Urine Ketones Trace H (Negative) mg/dL Ur Blood (Man) Negative (Negative) Urine Nitrate Negative (Negative) Urine Bilirubin Negative (Negative) Urine Urobilinogen 0.2 (<2.0) mg/dL Leukocyte Esterase Rfl Trace H (Negative) SANTA/UL Urine RBC 0-2 (0-2) /hpf Urine WBC 0-5 (0-3) /hpf Ur Squamous Epith Cells None seen (Few) /hpf Urine Bacteria None seen /hpf Urine Casts 0-2 Imaging Data Attestation: I personally reviewed and interpreted this imaging study as follows: My impression: Chest x-ray: No acute cardiopulmonary abnormality Radiologist's impression: Impressions Chest X-Ray 09/25/25 15:18 Impression: No acute cardiopulmonary abnormality. Discharge Plan Discharge Clinical Impression: Nausea & vomiting Patient Disposition: Home Condition: Stable Instructions: Antibiotic Form, Clear Liquid Diet (ED) Additional Instructions: You were offered admission for further evaluation of your rapid heart rate and you declined and preferred to have close outpatient follow-up. I recommend following a clear liquid diet for the next few days. Zofran as needed for nausea control. Reglan as needed for additional nausea control. Have close follow-up with your primary care physician. If you have any worsening symptoms then please call or return to the emergency department. Patient Language: Macanese Prescriptions: New metronidazole 500 mg tablet 500 mg PO Q12H 7 Days Qty: 14 0RF ondansetron 4 mg tablet,disintegrating 4 mg PO Q8H PRN (Reason: nausea and vomiting) Qty: 14 0RF No Action secukinumab [Cosentyx (2 Syringes)] See Rx Instructions subcut .COMPLEX Patient Comments: Due 08/31/25 Rx Instructions: 300 mg subcutaneously monthly; lisinopril 2.5 mg tablet 2.5 mg PO DAILY Qty: 30 0RF potassium chloride 20 mEq Packet 40 meq PO DAILY Qty: 5 0RF (DME) blood-glucose meter [myAchyTouch Verio Flex meter] Misc Qty: 1 0RF Rx Instructions: May substitute to in-stock meter and/or covered by insurance. Use As Directed (DME) OneTouch Verio test strips Strip Qty: 1 0RF Rx Instructions: May substitute to in-stock and/or covered by insurance strips. Use As Directed (DME) pen needle, diabetic 32 gauge x 5/32 Needle Qty: 1 0RF Rx Instructions: As Directed (DME) lancets [myAchyTouch Delica Plus Lancet] 30 gauge misc Qty: 1 0RF Rx Instructions: May substitute to in-stock and/or covered by insurance lancets. Use As Directed ferrous sulfate 325 mg (65 mg iron) tablet 325 mg PO BID Qty: 180 1RF ascorbic acid (vitamin C) [Vitamin C] 500 mg tablet 500 mg PO DAILY Qty: 30 0RF Rx Instructions: LAST FILL FROM THIS OFFICE. pantoprazole 40 mg tablet,delayed release (DR/EC) 40 mg PO QAM Qty: 30 3RF Patient Comments: Just got filled today rosuvastatin 10 mg tablet 10 mg PO DAILY Qty: 30 2RF Mounjaro 2.5 mg/0.5 mL pen injector 2.5 mg subcut WEEKLY Qty: 2 0RF Rx Instructions: for 4 weeks insulin degludec 100 unit/mL (3 mL) insulin pen 22 unit subcut HS Qty: 15 0RF Follow-up/Referrals: Dinora Zheng APRN [Primary Care Provider, Internal Medicine]
[2025-09-25 14:29] LABS: Add Urine Microscopic? YES; Appearance Urine Clear (Clear); Glucose Urine UA Negative (Negative); Leukocyte Esterase Ur Trace LEU/UL (Negative); Nitrate Urine Negative (Negative); Non Pathogenic Casts 0-2; Specific Grav Ur 1.006 (1.001-1.035)
[2025-09-25 14:39] LABS: Anion Gap 11 mmol/L (4-12); Blood Urea Nitrogen 5 mg/dL (9-20); Calcium 8.1 mg/dL (8.4-10.2); Carbon Dioxide 22 mmol/L (22-30); Chloride 96 mmol/L (98-107); Estimated CRCL calculation 100 ml/min; Estimated Glomerular Filt Rate > 60; Glucose 122 mg/dL (65-110); Potassium 3.4 mmol/L (3.4-5.0); Sodium 129 mmol/L (137-145)
[2025-09-25 14:47] LABS: Beta-Hydroxybutyrate/Acetoace. 1.63 mmol/L (0.02-0.27)
[2025-09-25 14:52] VITALS: PULSE 118; RESP 20; O2SAT 97
[2025-09-25 15:57] VITALS: BP 121/70; PULSE 118; RESP 18; O2SAT 98
== END 2025-09-25 16:14 | disposition home or self-care (01) ==
PROVIDERS: Emergency Provider Emergency Medicine
DX: R11.2 Nausea with vomiting, unspecified (principal); J45.909 Unspecified asthma, uncomplicated; F17.210 Nicotine dependence, cigarettes, uncomplicated; Z79.84 Long term (current) use of oral hypoglycemic drugs; Z79.4 Long term (current) use of insulin; Z79.85 Long-term (current) use of injectable non-insulin antidiabetic drugs
CPT/HCPCS: 36415; 71046; 80048; 80053; 81001; 82010; 82948; 83735; 84100; 85025; 96365; 96366; 96375; 99284; A9270; J2765; J3480; J7030; J7120

== ENCOUNTER 2025-09-27 11:46 | Outpatient (CLI) | payer OTHER, SELFPAY ==
--- OUTSIDE RECORDS SUMMARY | 2013-11-17 02:30 | XMS_ITS | Continuity of Care Document ---
Author Organization [facility] Address [address] [place] [address] [address] [place] [address] Phone Care Team Providers Care Csm Consultant Name Role Phone Marjorie VALADEZ, Syed Unavailable Unavaila ble Allergies, Adverse Reactions, Alerts Substance Reaction Status Criticality No Known allergies Procedures Procedure Date OFFICE/OUTPATIENT VISIT, [facility] CORNEAL TOPOGRAPHY Advance Directives Directive Yes / No Effective Date File Name No Information Encounters Encounter Description Practice Location Reason(s) For Visit Diagnoses Date Provider Providers Copied on Encounter OFFICE/OUTPA TIENT VISIT, [facility], [address], [place], [place], [address], tel:[phone] Oph Consult [facility] Office Central opacity of corneaEndothel ial corneal dystrophyRegul ar astigmatismMyo samir 4 Marjorie Lynch. [address], [address], [place], [place], [address], [place]. tel:[phone] Referring Provider: Syed zuleta, [address], [place], [address] . tel:[phone] Family History Family Member Type Diagnosis Age At Onset No Information Payers Payer name Insurance type Covered republican ID Authoriza tion(s) No Information Social History Type Description Quantity Date Captured Comments Alcohol Use Details Caffeine Use Details Unknown Tobacco Use Status No Information Smoking Status Current every day smoker Smoking Tobacco Use Details Cigarette: No Details Available Cigarette: No Details Available Sex Male Chief Complaint And Reason For Visit No Information Reason For Referral Reason For Referral No Information History Of Present Illness Encounter Date Complaint History Of Prese nt Illness No Information Functional Status Date Functional Assessmen t No Information Instructions Date Instruction Additional Infor sabine Central opacity of c ornea OU - deep stromal/endothelial, good BCVA Related to Central opacity of cornea - Return in 6 months with Syed Amador MD for follow up exam. 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 Good BCVA OU. - Dicussed diagnosis and risk of progression. No treatment required at this time. No contraindications to RGP CL wear. Recommend glasses Rx for back-up. Follow-up in 6 months to monitor for progression. 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 Related to Regular astigmatism Assessments Type Assessment Date No Information Patient Care Teams Name Effective Dates (start - stop) Status Members No Information
[2025-09-27 12:54] LABS: Cholesterol 70 mg/dL (0-200); HDL Direct 26 mg/dL; Triglycerides 114 mg/dL (<150)
[2025-09-27 13:34] LABS: Prostate Specific Antigen 0.4 ng/mL (< OR = 4.0); Thyroid Stimulating Hormone 1.340 uIU/mL (0.465-4.680)
[2025-09-27 13:35] LABS: MALB Creatinine Ratio 265.2 mg/g (0-30)
[2025-09-27 14:31] LABS: Vitamin B12 > 1000.0 pg/mL (239-931)
[2025-09-28 10:46] LABS: Alanine Aminotransferase 16 U/L (6-50); Albumin Level 3.3 g/dL (3.5-5.1); Alkaline Phosphatase 145 U/L (38-126); Anion Gap 16 mmol/L (4-12); Aspartate Amino Transferase 29 U/L (17-59); Bilirubin,Total 0.4 mg/dL (0.2-1.3); Blood Urea Nitrogen 3 mg/dL (9-20); Calcium 8.5 mg/dL (8.4-10.2); Carbon Dioxide 20 mmol/L (22-30); Chloride 99 mmol/L (98-107); Estimated Glomerular Filt Rate > 60; Glucose 154 mg/dL (65-110); Potassium 4.4 mmol/L (3.4-5.0); Sodium 135 mmol/L (137-145); Total Protein 7.9 g/dL (6.3-8.2)
[2025-09-28 10:47] LABS: Iron 27 ug/dL (49-181)
[2025-09-28 10:58] LABS: Percent Iron Saturation 18 % (20-50)
== END 2025-09-27 11:47 | disposition home or self-care (01) ==
DX: E78.5 Hyperlipidemia, unspecified (principal); E11.9 Type 2 diabetes mellitus without complications; Z79.4 Long term (current) use of insulin; R53.83 Other fatigue; L73.2 Hidradenitis suppurativa; Z12.5 Encounter for screening for malignant neoplasm of prostate; E55.9 Vitamin D deficiency, unspecified; E87.6 Hypokalemia; D50.9 Iron deficiency anemia, unspecified
CPT/HCPCS: 36415; 80053; 80061; 82043; 82306; 82607; 82746; 83540; 83550; 84153; 84443; G0103